=== PATIENT | female | born 1945 | race Caucasian/White ===

== ENCOUNTER → 2017-04-28 | Outpatient (CLI) | payer MEDICARE, BC ==
--- NOTE | 2017-04-28 16:10 | ST Modified Barium Swallow ---
Recommendation - Recommendations Recommendations: Recommend majority of nutrition/hydration be provided via PEG. May have pleasure feeds of nectar liquids and mechanical soft ground diet. Would benefit from dietary consult to ensure nutritional needs are met. Patient is also a candidate for Free Water Protocol. Medical Diagnoses - Medical Diagnoses Medical Diagnosis Description & ICD-10 Code(s): dysphagia following unspecified CVA I69.991, dysphagia R13.10 Other Medical Diagnoses/Co-Morbidities: hx of CVA 2008, prior aspiration pneumonia 2011 Modified Barium Swallow - General Date: 04/28/17 Referring Physician: Dr. Clarke Risks/Precautions: Aspiration Reason for Referral: "choking with food and liquid" - History History obtained from: Family - daughter present -: Medical - Daughter reports that the patient had a CVA on September 18, 2008. Was made NPO immediately after CVA, but able to regain PO diet. The patient is currently on night feeds with PEG tube and eats by mouth during the day. - Functional Status Prior Functional Status: INDEPENDENT: feeding - impaired Current Functional Limitations: feeding - impaired - Subjective Patient/caregiver goal(s): r/o aspiration - establish safest diet Cognitive-Linguistic Function: Other - difficulty communicating Speech Intelligibility: Severely dysarthric Current Nutritional Means: PO Current PO diet: Regular - specific foods Current symptoms: Coughing, Hx of asp. pneumonia Pain: Patient reports, 0/5 - Objective Assessment: Upright, Left Lateral - Food Trials Used Food trials used: Thin liquids, Hermosa thick liquids, Pureed, Regular The patient: fed by - Oral-Motor Skills Dentition: Partial Laryngeal Function: Weak Cough - Assessment Oral prep: Mildly Impaired Labial closure: Reduce closure Leakage: Anterior - with liquids Mastication: Lengthy Lingual Movement: Weak Oral stage: Moderately Impaired Oral Stage: Oral residue seen after swallow, required multiple swallows or liquid wash to clear. - Pharyngeal Stage Initiation of Pharyngeal Stage Reflex: Delayed Reflex Delay Time (Seconds): 3 Decreased laryngeal elevation: Yes Reduced Velopharyngeal Closure: no Reduced pressure generation: Yes reduced tongue-based retraction: No Pre-swallow pooling in valleculae: Mild Pre-Swallow pooling in pyriforms: Mild Reduced Thyro-Hyoid approximation: Yes Reduced epiglottic excursion: No Post-swallow residulas vallecular: Mild Post-Swallow residuals in pyriforms: Moderate Pharyngeal Stage Comments: Delayed swallow reflex seen, as well as residue throughout pharynx. Able to clear with liquid wash or multiple swallows. - Fall Risk Assessment Medications/Conditions that increase fall risks include: Antidepressants, sedatives, anti-arrhythmic, diuretic, benzodiazipenes, neuroleptics. BP regulation problems, cardiac problems, balance or gait deficits, neurological problems. Fall Risk Actions Taken: No action needed - Behavioral Observations During evaluation process patient: was cooperative - Treatment / Educational Needs: Treatment/Education Needs: Treatment consisted of patient education on the role of the Speech Pathologist. Patient's plan of care and golas were communicated as well as scheduling and attendance policies. Recommendations for initial home program were shared. Patient demonstrated understanding and verbalized agreement. Initial home program recommendations: Pleasure feeds of nectar liquids and mechanical soft foods. Majority of nutrition/hydration should be met via PEG. Patient is candidate for Free Water Protocol. Information given to patient's daughter regarding diet recommendations, and recommendation for candy cooker helper/ bobbin disker consult to ensure nutrition needs are being met. - Impression/Summary Laryngeal Penetration: Yes, Silent, during swallow Consistency: Thin, Hermosa Tracheal Aspiration: yes - with thin liquid only, deep, silent, during swallow, after swallow Productive cough: No Effective Clearing: no Patient presents with: Oral-Pharyngeal dysph., Severe Risk of Aspiration: Moderate Risk of nutritional compromise: WNL Evaluation and Findings: Patient presents with moderate to severe oral and pharyngeal phase dysphagia. This is characterized by reduced oral clearing, trace aspiration of thin liquids, and pharyngeal residue of solids. Recommend pleasure feeds of nectar liquids, mechanical soft solids, with primary nutrition hydration needs being met via tube feeds. Patient is also a candidate for a Free Water Protocol, which was discussed with caregiver. - Recommendations NPO: therapeutic trials - pleasure feeds Solid diet recommendations: Mechanical Soft - for pleasure feeds Liquid Diet Modification: Hermosa-Thick - for pleasure feeds Strict aspiration precautions: Yes Pt/Family education and followup with MD: Yes Reflux Precautions: Taught to Family Recommended techniques: Fully Upright During Meal, Small Bites and Sips, Alternate Bites/Sips Supervision: requires assistance Information, Precautions and Recommendations: Patient (Written), Patient (Verbal ), Family Member (Written) - patient's daughter given diet recommendations and information on thickened liquids., Family Member (Verbal) - Time Total Time: 20 - Plan of Care Strategies to optimize patient understanding include:: ongoing assessment of educational needs, implementation of educational strategies, and re-education. - - -: Thank you for the opportunity to work with this patient and his/her family. Should you have any questions about this patient's plan or progress, I can be reached at [phone]. Charge G Code? - - -: Yes [facility] Impairment Category - Rationale Based On Rationale Based On: Func. Asses. Tool Results - Swallowing Current G8996: CM 80-99% Impaired Goal G8997: CM 80-99% Impaired Discharge G8998: CM 80-99% Impaired
== END ==
LOC: RAD 08:19
PROVIDERS: ATTEND Family Medicine
DX: I69.991 Dysphagia following unspecified cerebrovascular disease (principal); R13.10 Dysphagia, unspecified
CPT/HCPCS: 74230; 92611; G8996; G8997; G8998

== ENCOUNTER → 2017-06-10 | Outpatient (CLI) | payer MEDICARE, BC ==
--- NOTE | 2017-06-10 15:26 | WOMENS IMAGING REPORT ---
EXAM DESCRIPTION: BILAT SCREENING MAMMO W/CAD COMPLETED DATE/TIME: 06/10/2017 2:48 pm REASON FOR STUDY: SCREENING MAMMO Z12.31 ENCNTR SCREEN MAMMOGRAM FOR MALIGNANT NEOPLASM OF ABBY COMPARISON: February 2015 TECHNIQUE: Standard craniocaudal and mediolateral oblique views of each breast recorded using [employer] acquisition. LIMITATIONS: None. FINDINGS: RIGHT BREAST MASSES: No suspicious masses. CALCIFICATIONS: No new or suspicious calcifications. ARCHITECTURAL DISTORTION: None. DEVELOPING DENSITY: There is a developing density in the subareolar portion of the right breast which may in part be related to nipple inversion. ASYMMETRY: None noted. OTHER: No other significant findings. LEFT BREAST MASSES: No suspicious masses. CALCIFICATIONS: No new or suspicious calcifications. ARCHITECTURAL DISTORTION: None. DEVELOPING DENSITY: None. ASYMMETRY: None noted. OTHER: No other significant findings. Read with the assistance of CAD. [facility] - R2 Cenova Version 1.3 .[facility] - R2 Cenova Version 1.3 .[facility] - R2 Cenova Version 2.4 .[facility] - R2 Cenova Version 2.4 .[facility] - R2 [employer] Version 9.2 IMPRESSION: Developing density in the subareolar portion of the right breast. BREAST DENSITY: b. There are scattered areas of fibroglandular density. BIRAD: 0 Incomplete: Needs Additional Imaging Evaluation and/or prior Mammograms for Comparison. RECOMMENDATION: RECOMMENDED FOLLOW-UP: Recommend correlation with clinical findings and if clinicall y warranted ultrasound may be of value for further evaluation. The patient will be contacted for additional imaging. COMMENT: The patient has been notified of the results by letter per [place] requirements. Additional no tification policies are in place for contacting patient with suspicious or incomplete findings. Quality ID #[id number]: The [employer] recommends an annual screening mammogram for women aged 40 years or over. This facility utilizes a reminder system to ensure that all patients receive reminder letters, and/or direct phone calls for appointments. This includes reminders for routine scr eening mammograms, diagnostic mammograms, or other Breast Imaging Interventions when appropriate. Th is patient will be placed in the appropriate reminder system. The [employer] (ACR) has developed recommendations for screening MRI of the breast s in certain patient populations, to be used in conjunction with mammography. Breast MRI surveillanc e may be appropriate for women with more than 20% lifetime risk of developing breast cancer as deter mined by genetic testing, significant family history of the disease, or history of mantle radiation f or Hodgkins Disease. ACR Practice Guidelines 2008. TECHNICAL DOCUMENTATION: FINDING NUMBER: (1) ASSESSMENT: (1) JOB ID: [id number] [employer]- All Rights Reserved Reading location - IP/workstation name: [email or web address]
== END ==
LOC: WI 14:07
PROVIDERS: ATTEND Physician Assistant Medical
DX: Z12.31 Encounter for screening mammogram for malignant neoplasm of breast (principal); R92.2 Inconclusive mammogram
CPT/HCPCS: 77067

== ENCOUNTER 2017-07-05 12:07 | Inpatient (IN) | payer MEDICARE, BC ==
[2017-07-05] MEDS ORDERED: IPRATROPIUM/ALBUTEROL 0.5-2.5 MG/3 ML AMPUL NEB ONE (12:23)
--- NOTE | 2017-07-05 12:25 | ER Document Report ---
ED Medical Screen (RME) - General Chief Complaint: Shortness Of Breath Stated Complaint: SHORTNESS OF BREATH, WEAKNESS Time Seen by Provider: 07/05/17 12:22 Notes: Patient is a 71-year-old female, past medical history prior CVA, former smoker, presents with 2 weeks of increasing shortness of breath and dry cough. Patient has never been formally diagnosed with COPD and is found to be 91%. According to daughter, the patient is also had increased weakness over the past 2 weeks too. PE: Mild tachypnea, coarse breath sounds, tachycardia I have greeted and performed a rapid initial assessment of this patient. A comprehensive ED assessment and evaluation of the patient, analysis of test results and completion of the medical decision making process will be conducted by additional ED providers. TRAVEL OUTSIDE OF THE [place] IN LAST 30 DAYS: No - Related Data Allergies/Adverse Reactions: codeine [Codeine] Allergy (Verified 07/05/17 12:07) Past Medical History - Past Medical History Cardiac Medical History: Reports: Hx Hypercholesterolemia, Hx Hypertension Denies: Hx Coronary Artery Disease, Hx Heart Attack Pulmonary Medical History: Reports: Hx Pneumonia - aspiration Denies: Hx Asthma, Hx Bronchitis, Hx COPD Neurological Medical History: Reports: Hx Cerebrovascular Accident - RIGHT SIDE WEAKER. Denies: Hx Seizures GI Medical History: Reports: Hx Gastroesophageal Reflux Disease Musculoskeltal Medical History: Reports Hx Arthritis Psychiatric Medical History: Reports: Hx Depression Past Surgical History: Reports: Hx Orthopedic Surgery - back and neck surgery. Denies: Hx Hysterectomy, Hx Pacemaker - Immunizations Immunizations up to date: No - OFFER FLU AND PNEUMONIA VACCINE Hx Diphtheria, Pertussis, Tetanus Vaccination: Yes Physical Exam - Vital signs Vitals: Temp Pulse Resp BP Pulse Ox 98.4 F 117 H 20 132/58 H 91 L 07/05/17 12:13 07/05/17 12:13 07/05/17 12:13 07/05/17 12:13 07/05/17 12:13 Course - Vital Signs Vital signs: Temp Pulse Resp BP Pulse Ox 98.4 F 117 H 20 132/58 H 91 L 07/05/17 12:13 07/05/17 12:13 07/05/17 12:13 07/05/17 12:13 07/05/17 12:13
[2017-07-05] MEDS ORDERED: NORMAL SALINE 1000 ML 1,000 ML IV ONE (13:08)
[2017-07-05] MEDS ORDERED: METHYLPREDNISOLONE INJ 125 MG/2 ML SDV IV ONE (13:09)
[2017-07-05] MEDS ORDERED: CEFTRIAXONE INJ 1000 MG VIAL IV ONE (13:12)
--- NOTE | 2017-07-05 13:12 | ER Document Report ---
ED Respiratory Problem - General Chief Complaint: Shortness Of Breath Stated Complaint: SHORTNESS OF BREATH, WEAKNESS Time Seen by Provider: 07/05/17 12:22 Notes: 71-year-old female, past medical history prior CVA, former smoker, presents with 2 weeks of increasing shortness of breath and dry cough. Patient has questionable history of COPD and is found to be saturating 91%. The patient denies any fever or chills. States she has been considerably weak. And feeling poorly. Patient claims of a dry mouth and feeling thirsty she is a history of prior stroke with left-sided weakness. Denies chest pain. Had some mild tightness. Denies extremity swelling denies calf pain. Denies hematuria or dysuria denies diarrhea or constipation. TRAVEL OUTSIDE OF THE [place] IN LAST 30 DAYS: No - Related Data Allergies/Adverse Reactions: codeine [Codeine] Allergy (Verified 07/05/17 12:07) Past Medical History - Social History Smoking Status: Former Smoker Chew tobacco use (# tins/day): No Frequency of alcohol use: None Drug Abuse: None Family History: None Patient has suicidal ideation: No Patient has homicidal ideation: No - Past Medical History Cardiac Medical History: Reports: Hx Hypercholesterolemia, Hx Hypertension Denies: Hx Coronary Artery Disease, Hx Heart Attack Pulmonary Medical History: Reports: Hx Pneumonia - aspiration Denies: Hx Asthma, Hx Bronchitis, Hx COPD Neurological Medical History: Reports: Hx Cerebrovascular Accident - RIGHT SIDE WEAKER. Denies: Hx Seizures Renal/ Medical History: Denies: Hx Peritoneal Dialysis GI Medical History: Reports: Hx Gastroesophageal Reflux Disease Musculoskeltal Medical History: Reports Hx Arthritis Psychiatric Medical History: Reports: Hx Depression Past Surgical History: Reports: Hx Orthopedic Surgery - back and neck surgery. Denies: Hx Hysterectomy, Hx Pacemaker - Immunizations Immunizations up to date: No - OFFER FLU AND PNEUMONIA VACCINE Hx Diphtheria, Pertussis, Tetanus Vaccination: Yes Hx Pneumococcal Vaccination: 06/27/09 Review of Systems - Review of Systems Constitutional: denies: Chills, Fever EENT: denies: Throat pain, Dental problem Cardiovascular: Dyspnea. denies: Chest pain Respiratory: Cough, Short of breath, Wheezing. denies: Hurts to breathe, Hemoptysis Gastrointestinal: denies: Abdominal pain, Nausea, Vomiting, Black stools, Rectal bleeding Genitourinary: denies: Dysuria, Hematuria Musculoskeletal: denies: Leg swelling Neurological/Psychological: denies: Headaches -: Yes All other systems reviewed and negative Physical Exam - Vital signs Vitals: Temp Pulse Resp BP Pulse Ox 98.4 F 117 H 20 132/58 H 91 L 07/05/17 12:13 07/05/17 12:13 07/05/17 12:13 07/05/17 12:13 07/05/17 12:13 - Notes Notes: GENERAL_APPEARANCE: well_nourished, alert, cooperative, respiratory distress VITALS: reviewed, see vital signs table. HEAD: no_swelling\tenderness on the head. EYES: PERRL, EOMI, conjunctiva_clear. NOSE: no_nasal_discharge. MOUTH: Dry mucous membranes THROAT: no_airway_obstruction. no_lymphadenopathy NECK: supple, no_neck_tenderness, (-)thyromegaly. BACK: no_back_tenderness. CHEST_WALL: no_chest_tenderness. LUNGS: Scattered_wheezing, crackles left base no_rhonchi, positive accessory muscle use, fair air exchange bilateral. HEART: normal_rate, normal_rhythm, normal_S1, normal_S2, (-)S3, (-)S4, no_ murmur, no_rub. ABDOMEN: normal_BS, soft, no_abd_tenderness, (-)guarding, (-)rebound, no_ organomegaly, no_abd_masses. EXTREMITIES: good pulses in all_extremities, no_swelling\tenderness in the extremities, no_edema. SKIN: warm, dry, good_color, no_rash. MENTAL_STATUS: speech_clear, oriented_X_3, normal_affect, responds_ appropriately to questions. NEURO: Left facial droop and left-sided weakness from prior stroke Course - Re-evaluation Re-evalutation: 07/05/17 13:11 Triage is placed orders. She will be given aerosol treatment steroids and a dose of antibiotics. Patient 's been having increasing cough and shortness of breath she clinically looks dehydrated will receive a liter of IV fluids. Aerosol treatment steroids. Will begin working the patient up. 07/05/17 13:12 The patient does have a history of aspiration pneumonia. This is the daughter' s primary concern. 07/05/17 14:31 Patient has a left lower lobe pneumonia leukocytosis. She had accessory muscle use upon presentation this is an significantly with aerosol treatment steroids and antibiotics. She has not been around a healthcare facility so I treated her for community-acquired pneumonia with Rocephin and Zithromax. With the patient's stroke and questionable aspiration I do not think she will do well at home. Patient will be admitted to the hospital. I suspect that she may have rebound bronchospasm therefore persistent pulmonary toilet may be needed. - Vital Signs Vital signs: Temp Pulse Resp BP Pulse Ox 98.4 F 117 H 20 132/58 H 91 L 07/05/17 12:13 07/05/17 12:13 07/05/17 12:13 07/05/17 12:13 07/05/17 12:13 - Laboratory Result Diagrams: 07/05/17 13:00 07/05/17 13:00 Laboratory results interpreted by me: 07/05/17 07/05/17 07/05/17 13:00 13:00 13:00 WBC 14.0 H Hgb 11.8 L RDW 15.0 H Seg Neutrophils % 81.1 H Lymphocytes % 10.9 L Absolute Neutrophils 11.3 H BUN 25 H Glucose 140 H Direct Bilirubin 0.6 H AST 48 H NT-Pro-B Natriuret Pep 1170 H Total Protein 8.3 H - Diagnostic Test Radiology reviewed: Image reviewed Radiology results interpreted by me: 07/05/17 14:31 Chest X-Ray 07/05/17 12:23 IMPRESSION: Left basilar density is noted above. Discharge - Discharge Clinical Impression: Pneumonia Qualifiers: Pneumonia type: due to unspecified organism Laterality: left Lung location: lower lobe of lung Qualified Code(s): J18.1 - Lobar pneumonia, unspecified organism Condition: Fair Disposition: ADMITTED INPATIENT Admitting Provider: Hospitalist
[2017-07-05 13:21] LABS: ABSOLUTE LYMPHOCYTES (AUTO) 1.5 10^3/uL (0.5-4.7); ABSOLUTE MONOCYTES (AUTO) 1.1 10^3/uL (0.1-1.4); ABSOLUTE NEUT (AUTO) 11.3 10^3/uL (1.7-8.2); BASOPHILS % (AUTO) 0.1 % (0-2); HEMOGLOBIN 11.8 g/dL (12.0-15.5); LYMPHOCYTES % (AUTO) 10.9 % (13-45); MEAN CORPUSCULAR HEMOGLOBIN 27.8 pg (27.0-33.4); MEAN CORPUSCULAR HGB CONC 32.9 g/dL (32.0-36.0); MEAN CORPUSCULAR VOLUME 85 fl (80-97); MONOCYTES % (AUTO) 7.9 % (3-13); PLATELET COUNT 228 10^3/uL (150-450); RED BLOOD COUNT 4.26 10^6/uL (3.72-5.28); SEGMENTED NEUTROPHILS % (AUTO) 81.1 % (42-78); TOTAL CELLS COUNTED % (AUTO) 100 %
[2017-07-05 13:31] LABS: ALANINE AMINOTRANSFERASE 47 U/L (9-52); ALKALINE PHOSPHATASE 124 U/L (38-126); ANION GAP 12 (5-19); ASPARTATE AMINO TRANSFERASE 48 U/L (14-36); BILIRUBIN,DIRECT 0.6 mg/dL (0.0-0.4); BILIRUBIN,TOTAL 1.1 mg/dL (0.2-1.3); BLOOD UREA NITROGEN 25 mg/dL (7-20); CALCIUM 9.9 mg/dL (8.4-10.2); CARBON DIOXIDE 30 mmol/L (22-30); CHLORIDE 102 mmol/L (98-107); GLUCOSE 140 mg/dL (75-110); POTASSIUM 4.1 mmol/L (3.6-5.0); SODIUM 143.5 mmol/L (137-145); TOTAL PROTEIN 8.3 g/dL (6.3-8.2)
[2017-07-05 13:47] LABS: TROPONIN I 0.053 ng/mL
[2017-07-05 13:54] LABS: VENOUS BLOOD BASE EXCESS 3.7 mmol/L; VENOUS BLOOD HCO3 29.5 mmol/L (20-32); VENOUS BLOOD PCO2 49.7 mmHg (35-63); VENOUS BLOOD PH 7.39 (7.30-7.42)
--- NOTE | 2017-07-05 14:00 | RADIOLOGY REPORT (SQ) ---
EXAM DESCRIPTION: CHEST SINGLE VIEW COMPLETED DATE/TIME: 07/05/2017 1:39 pm REASON FOR STUDY: SOB COMPARISON: November 2012 EXAM PARAMETERS: NUMBER OF VIEWS: One view. TECHNIQUE: Single frontal radiographic view of the chest acquired. RADIATION DOSE: NA LIMITATIONS: None. FINDINGS: LUNGS AND PLEURA: There is increased density in the left lung base consistent with pneumon ic consolidation. I cannot exclude a small associated left pleural effusion. Remaining lung scott are clear. MEDIASTINUM AND HILAR STRUCTURES: No masses. Contour normal. HEART AND VASCULAR STRUCTURES: Heart normal in size. Normal vasculature. BONES: No acute findings. HARDWARE: None in the chest. OTHER: No other significant finding. IMPRESSION: Left basilar density is noted above. TECHNICAL DOCUMENTATION: JOB ID: [id number] [employer]- All Rights Reserved Reading location - IP/workstation name: [email or web address]
[2017-07-05] MEDS ORDERED: AZITHROMYCIN INJ 500 MG VIAL IV ONE (14:19)
--- NOTE | 2017-07-05 14:25 | EKG REPORT ---
SEVERITY:- ABNORMAL ECG - SINUS TACHYCARDIA LEFT ATRIAL ABNORMALITY CONSIDER ANTERIOR INFARCT : Confirmed by: Humberto Luu 05-Jul-2017 14:25:15
[2017-07-05] MEDS ORDERED: ALBUTEROL SULFATE 0.083% NEB 2.5 MG/3 ML AMPUL NEB PRN (14:34)
[2017-07-05] MEDS ORDERED: BENZONATATE 100 MG CAPSULE PO PRN (15:22)
--- NOTE | 2017-07-05 15:46 | PDOC H&P ---
History of Present Illness Admission Date/PCP: 07/05/17 15:17 SHARI BENSON MD Patient complains of: Unable to obtain due to aphasia. Daughter is the source of information History of Present Illness: ARIANA MCCARTHY is a 71 year old female was brought in by her daughter since she was concerned about patient having difficulty breathing since yesterday. Patient had an abnormal mammogram and had a sonogram scheduled today. While getting the sonogram daughter noted the persistent difficulty breathing. She helps out her mother on a daily basis. Yesterday her mother was complaining of having a funny feeling in her chest. Also patient was sounding congested. Patient had a stroke around 10 years ago and since then she had been having problems communicating and also continues having mostly right-sided weakness. Daughter also is concerned because patient had lost about 5-6 pounds in a month time. Patient does have a G-tube however is allowed to have pureed. She had swallowing evaluation recently and was ordered by her PCP, Dr Benson. Patient' s daughter also states that she is always on her stepfather's case to keep mother in an upright position in order to avoid aspiration. When patient arrived to emergency room pulse ox was 91% at room air. She was placed on 2 L by nasal cannula with improvement to 96-98%. Patient does have a history of smoking however she quit around 10 years ago. Further workup in emergency room showed a left lower lobe pneumonia and was started on Rocephin and Zithromax IV. In addition patient was started on Solu-Medrol 125 mg IV. The hospitalist service was consulted and prompted to admit for management. Past Medical History Cardiac Medical History: Reports: Hyperlipidema, Hypertension Denies: Coronary Artery Disease, Myocardial Infarction Pulmonary Medical History: Reports: Pneumonia - aspiration Denies: Asthma, Bronchitis, Chronic Obstructive Pulmonary Disease (COPD) EENT Medical History: Reports: None Neurological Medical History: Reports: None Denies: Seizures Endocrine Medical History: Reports: None Renal/ Medical History: Reports: None Malignancy Medical History: Reports: None GI Medical History: Reports: Gastroesophageal Reflux Disease Musculoskeltal Medical History: Reports: Arthritis Skin Medical History: Reports: None Psychiatric Medical History: Reports: Depression Traumatic Medical History: Reports: None Hematology: Denies: Anemia Past Surgical History Past Surgical History: Reports: Orthopedic Surgery - back and neck surgery Denies: Hysterectomy, Pacemaker Social History Information Source: Relative Lives with: Spouse/Significant other Smoking Status: Former Smoker Frequency of Alcohol Use: None Hx Recreational Drug Use: No Hx Prescription Drug Abuse: No - Advance Directive Resuscitation Status: Full Code Family History Family History: None, COPD, CVA, DM, Hypertension, Malignancy Parental Family History Reviewed: Yes Children Family History Reviewed: Yes Sibling(s) Family History Reviewed.: Yes Medication/Allergy Home Medications: Aspirin [Aspirin 81 mg Chewable Tablet] 81 mg PO DAILY 09/23/11 Lisinopril [Prinivil 20 mg Tablet] 20 mg PO DAILY 09/23/11 Metoprolol Succinate [Toprol Xl 25 mg Tab.sr] 50 mg PO Q12H 09/23/11 Sertraline HCl [Zoloft 50 mg Tablet] 50 mg PO DAILY 09/23/11 Lovastatin [Altoprev] 40 mg PO QHS 01/03/12 Amlodipine Besylate [Norvasc 10 mg Tablet] 10 mg PO DAILY 05/03/12 Scopolamine Hydrobromide [Transderm-Scop 1.5 Mg Patch] 1 each TD Q72H PRN Allergies/Adverse Reactions: codeine [Codeine] Allergy (Verified 07/05/17 12:07) Review of Systems ROS unobtainable: Other - aphasia Physical Exam Vital Signs: Temp Pulse Resp BP Pulse Ox 98.4 F 117 H 24 H 138/68 H 99 07/05/17 12:13 07/05/17 12:13 07/05/17 15:01 07/05/17 14:39 07/05/17 15:01 General appearance: PRESENT: cooperative, thin Head exam: PRESENT: atraumatic, normocephalic Eye exam: PRESENT: conjunctiva pink, EOMI, PERRLA Ear exam: PRESENT: normal external ear exam Mouth exam: PRESENT: moist Neck exam: PRESENT: full ROM. ABSENT: JVD, lymphadenopathy, tenderness, thyromegaly Respiratory exam: PRESENT: decreased breath sounds, rhonchi Cardiovascular exam: PRESENT: RRR. ABSENT: diastolic murmur, systolic murmur Vascular exam: PRESENT: normal capillary refill GI/Abdominal exam: PRESENT: normal bowel sounds, soft. ABSENT: tenderness Extremities exam: PRESENT: full ROM. ABSENT: pedal edema Musculoskeletal exam: ABSENT: ambulatory Neurological exam: PRESENT: alert, awake, oriented to person, oriented to place , oriented to time, aphasic Psychiatric exam: PRESENT: appropriate affect, normal mood Skin exam: PRESENT: intact, normal color Results Impressions: Chest X-Ray 07/05/17 12:23 IMPRESSION: Left basilar density is noted above. Assessment & Plan - Diagnosis (1) Pneumonia Qualifiers: Pneumonia type: due to unspecified organism Laterality: left Lung location: lower lobe of lung Qualified Code(s): J18.1 - Lobar pneumonia, unspecified organism Is this a current diagnosis for this admission?: Yes Plan: Order zosyn since likely due to aspiration. (2) Elevated brain natriuretic peptide (BNP) level Is this a current diagnosis for this admission?: Yes Plan: May relate to pneumonic process. To order one time dose of Lasix IV. Order echocardiogram (3) Anemia Qualifiers: Anemia type: unspecified type Qualified Code(s): D64.9 - Anemia, unspecified Is this a current diagnosis for this admission?: Yes Plan: Likely due to chronic disease. Order anemia panel (4) History of stroke Is this a current diagnosis for this admission?: Yes Plan: Supportive. Consult dietitian since patient has lost 5-6 pounds recently. Consult case management, OT and PT for the purpose of rehab. (5) HTN (hypertension) Qualifiers: Hypertension type: essential hypertension Qualified Code(s): I10 - Essential (primary) hypertension Is this a current diagnosis for this admission?: Yes Plan: Will conitnue with outpatient regimen once available to reconcile - Time Time Spent: 30 to 50 Minutes Medications reviewed and adjusted accordingly: Yes Anticipated discharge: Acute Rehab Within: within 72 hours - Inpatient Certification Based on my medical assessment, after consideration of the patient's comorbidities, presenting symptoms, or acuity I expect that the services needed warrant INPATIENT care.: Yes I certify that my determination is in accordance with my understanding of Medicare's requirements for reasonable and necessary INPATIENT services [42 CFR 412.3e].: Yes Medical Necessity: Need Close Monitoring Due to Risk of Patient Decompensation, Need for Nebulizer Therapy and Monitoring of Response, Need for IV Antibiotics
[2017-07-05] MEDS ORDERED: SCOPOLAMINE HYDROBROMIDE 1.5 MG PATCH.TD72 TD ONE (16:30)
[2017-07-05] MEDS ORDERED: FUROSEMIDE INJ/PF 20 MG/2 ML SDV IV ONE (16:30)
[2017-07-05] MEDS: PIPERACILLIN SODIUM/TAZOBACTAM 3.375 GM in NORMAL SALINE 100 ML IV SCH (18:39)
[2017-07-05] MEDS ORDERED: METOPROLOL SUCCINATE 25 MG TAB.SR.24H PO SCH (19:00)
[2017-07-05] MEDS: IPRATROPIUM/ALBUTEROL 0.5-2.5 MG/3 ML AMPUL NEB SCH (19:46)
[2017-07-05] MEDS: HEPARIN SOD (PORCINE) 5,000 UNIT/ML 1 ML SYRINGE SUBCUT SCH (21:56)
[2017-07-05] MEDS: METHYLPREDNISOLONE INJ 40 MG/1 ML SDV IV SCH (21:56)
[2017-07-05] MEDS: METOPROLOL SUCCINATE 50 MG TAB.SR.24H PO SCH (21:57)
[2017-07-05] MEDS: GUAIFENESIN 600 MG TABLET.SA PO SCH (21:57)
[2017-07-06] MEDS: PIPERACILLIN SODIUM/TAZOBACTAM 3.375 GM in NORMAL SALINE 100 ML IV SCH ×5 (00:21→23:12)
[2017-07-06] MEDS ORDERED: NORMAL SALINE 1000 ML 1,000 ML IV PRN (05:00)
[2017-07-06] MEDS: METHYLPREDNISOLONE INJ 40 MG/1 ML SDV IV SCH ×3 (05:19→23:12)
[2017-07-06] MEDS: HEPARIN SOD (PORCINE) 5,000 UNIT/ML 1 ML SYRINGE SUBCUT SCH ×3 (05:19→23:12)
[2017-07-06 06:48] LABS: ABSOLUTE LYMPHOCYTES (AUTO) 0.4 10^3/uL (0.5-4.7); ABSOLUTE MONOCYTES (AUTO) 0.1 10^3/uL (0.1-1.4); ABSOLUTE NEUT (AUTO) 7.4 10^3/uL (1.7-8.2); ABSOLUTE RETICS # 0.039 10^6/uL (0.028-0.122); BASOPHILS % (AUTO) 0.2 % (0-2); HEMATOCRIT 32.4 % (36.0-47.0); HEMOGLOBIN 10.8 g/dL (12.0-15.5); LYMPHOCYTES % (AUTO) 5.5 % (13-45); MEAN CORPUSCULAR HGB CONC 33.3 g/dL (32.0-36.0); MEAN CORPUSCULAR VOLUME 84 fl (80-97); MONOCYTES % (AUTO) 1.6 % (3-13); PLATELET COUNT 183 10^3/uL (150-450); RED BLOOD COUNT 3.85 10^6/uL (3.72-5.28); RED CELL DISTRIBUTION WIDTH 14.8 % (11.5-14.0); RETICULOCYTE COUNT (AUTO) 1.02 % (0.66-2.85); SEGMENTED NEUTROPHILS % (AUTO) 92.7 % (42-78); TOTAL CELLS COUNTED % (AUTO) 100 %
[2017-07-06 07:02] LABS: ANION GAP 12 (5-19); BLOOD UREA NITROGEN 25 mg/dL (7-20); CALCIUM 9.2 mg/dL (8.4-10.2); CARBON DIOXIDE 26 mmol/L (22-30); CHLORIDE 106 mmol/L (98-107); GLUCOSE 143 mg/dL (75-110); IRON(TIBC) 26.4 ug/dL (37-170); POTASSIUM 3.8 mmol/L (3.6-5.0); SODIUM 143.9 mmol/L (137-145)
[2017-07-06 08:12] LABS: FOLATE > 20.00 ng/mL (>2.76)
[2017-07-06] MEDS: IPRATROPIUM/ALBUTEROL 0.5-2.5 MG/3 ML AMPUL NEB SCH ×3 (08:32→20:03)
[2017-07-06] MEDS ORDERED: (PENDING PHARMACY ID) (Lisinopril [Prinivil 20 Mg Tablet] 20 MG) PO SCH (10:00)
[2017-07-06] MEDS ORDERED: CEFTRIAXONE SODIUM 1,500 MG in DEXTROSE 5%-WATER 100 ML IV SCH (10:00)
[2017-07-06] MEDS ORDERED: AMLODIPINE BESYLATE 10 MG TABLET PO SCH (10:00)
[2017-07-06] MEDS: METOPROLOL SUCCINATE 50 MG TAB.SR.24H PO SCH ×2 (11:49→23:05)
[2017-07-06] MEDS: SERTRALINE HCL 50 MG TABLET PO SCH (11:49)
[2017-07-06] MEDS: ASPIRIN 81 MG TABLET, CHEWABLE PO SCH (11:49)
[2017-07-06] MEDS: LISINOPRIL 10 MG TABLET PO SCH (11:50)
[2017-07-06] MEDS: GUAIFENESIN 600 MG TABLET.SA PO SCH ×2 (11:50→23:05)
--- NOTE | 2017-07-06 15:43 | PDOC PROGRESS REPORT ---
Subjective Progress Note for:: 07/06/17 Subjective:: Patient states that feels better then yesterday. Communication is difficult due to aphasia and daughter was not at bedside Review of system All organ systems evaluated and negative except as in subjective All significant diagnostics and laboratories have been reviewed Reason For Visit: PNEUMONIA Physical Exam Vital Signs: Temp Pulse Resp BP Pulse Ox 97.9 F 69 16 106/50 L 100 07/06/17 06:00 07/06/17 04:07 07/06/17 04:07 07/06/17 04:07 07/06/17 04:07 Intake & Output 07/05/17 07/06/17 07/07/17 06:59 06:59 06:59 Intake Total 0 Balance 0 Weight 49.5 kg General appearance: PRESENT: no acute distress, cooperative, thin Head exam: PRESENT: atraumatic, normocephalic Eye exam: PRESENT: conjunctiva pink, EOMI, PERRLA Ear exam: PRESENT: normal external ear exam Mouth exam: PRESENT: moist Neck exam: PRESENT: full ROM. ABSENT: JVD, lymphadenopathy, tenderness Respiratory exam: PRESENT: rhonchi, other - Improvement of movement of air bilaterally Cardiovascular exam: PRESENT: RRR. ABSENT: diastolic murmur, systolic murmur Vascular exam: PRESENT: normal capillary refill GI/Abdominal exam: PRESENT: normal bowel sounds, soft. ABSENT: tenderness Extremities exam: PRESENT: full ROM. ABSENT: pedal edema Musculoskeletal exam: PRESENT: ambulatory Neurological exam: PRESENT: alert, awake, oriented to person, oriented to place , aphasic Psychiatric exam: PRESENT: appropriate affect, normal mood Skin exam: PRESENT: intact, normal color Results Laboratory Results: 07/06/17 06:24 07/06/17 06:24 07/06/17 07/06/17 06:24 06:24 WBC 8.0 RBC 3.85 Hgb 10.8 L Hct 32.4 L MCV 84 MCH 28.0 MCHC 33.3 RDW 14.8 H Plt Count 183 Seg Neutrophils % 92.7 H Lymphocytes % 5.5 L Monocytes % 1.6 L Eosinophils % 0.0 Basophils % 0.2 Absolute Neutrophils 7.4 Absolute Lymphocytes 0.4 L Absolute Monocytes 0.1 Absolute Eosinophils 0.0 Absolute Basophils 0.0 Retic Count (auto) 1.02 Absolute Retic 0.039 Sodium 143.9 Potassium 3.8 Chloride 106 Carbon Dioxide 26 Anion Gap 12 BUN 25 H Creatinine 0.59 Est GFR ( Amer) > 60 Est GFR (Non-Af Amer) > 60 Glucose 143 H Calcium 9.2 Magnesium 1.9 Iron 26.4 L TIBC 272 % Saturation 10 Ferritin 116.00 Vitamin B12 444.0 Folate > 20.00 07/05/17 07/06/17 18:55 01:01 Troponin I 0.042 0.016 Impressions: Chest X-Ray 07/05/17 12:23 IMPRESSION: Left basilar density is noted above. Assessment & Plan - Diagnosis (1) Pneumonia Qualifiers: Pneumonia type: aspiration pneumonia Laterality: left Lung location: lower lobe of lung Is this a current diagnosis for this admission?: Yes Plan: Continue zosyn since likely due to aspiration. (2) Elevated brain natriuretic peptide (BNP) level Is this a current diagnosis for this admission?: Yes Plan: May relate to pneumonic process. Echocardiogram ordered (3) Anemia Qualifiers: Anemia type: unspecified type Qualified Code(s): D64.9 - Anemia, unspecified Is this a current diagnosis for this admission?: Yes Plan: AROM mildly decreased as to start supplementation (4) History of stroke Is this a current diagnosis for this admission?: Yes Plan: Supportive. OT and PT consulted for the purpose of rehab. To start Jevity as per dietitian's recommendation (5) HTN (hypertension) Qualifiers: Hypertension type: essential hypertension Qualified Code(s): I10 - Essential (primary) hypertension Is this a current diagnosis for this admission?: Yes Plan: Decrease Norvasc dose and continue lisinopril and Toprol current dose - Time Time Spent with patient: 15-24 minutes Medications reviewed and adjusted accordingly: Yes Anticipated discharge: Acute Rehab Within: within 72 hours - Inpatient Certification Based on my medical assessment, after consideration of the patient's comorbidities, presenting symptoms, or acuity I expect that the services needed warrant INPATIENT care.: Yes I certify that my determination is in accordance with my understanding of Medicare's requirements for reasonable and necessary INPATIENT services [42 CFR 412.3e].: Yes Medical Necessity: Significant Comorbidiites Make Outpatient Treatment Too Risky , Need Close Monitoring Due to Risk of Patient Decompensation, Need for IV Antibiotics
[2017-07-06] MEDS: FERROUS SULFATE 325 MG TABLET PO SCH (18:32)
--- NOTE | 2017-07-06 22:48 | RADIOLOGY REPORT (SQ) ---
EXAM DESCRIPTION: CHEST SINGLE VIEW COMPLETED DATE/TIME: 07/06/2017 10:31 pm REASON FOR STUDY: aspiration COMPARISON: 07/05/2017 EXAM PARAMETERS: NUMBER OF VIEWS: One view. TECHNIQUE: Single frontal radiographic view of the chest acquired. RADIATION DOSE: NA LIMITATIONS: None. FINDINGS: LUNGS AND PLEURA: Similar small left basilar airspace opacities -effusion. Right lung sonam ears clear. MEDIASTINUM AND HILAR STRUCTURES: Stable. HEART AND VASCULAR STRUCTURES: Stable. BONES: No acute findings. HARDWARE: None in the chest. OTHER: No other significant finding. IMPRESSION: Similar small left basilar airspace opacities -effusion. TECHNICAL DOCUMENTATION: JOB ID: [id number] [place]-72 2010 [employer]- All Rights Reserved Reading location - IP/workstation name: [email or web address]
[2017-07-07] MEDS: METHYLPREDNISOLONE INJ 40 MG/1 ML SDV IV SCH ×2 (05:22→17:43)
[2017-07-07] MEDS: PIPERACILLIN SODIUM/TAZOBACTAM 3.375 GM in NORMAL SALINE 100 ML IV SCH ×4 (05:22→22:29)
[2017-07-07] MEDS: HEPARIN SOD (PORCINE) 5,000 UNIT/ML 1 ML SYRINGE SUBCUT SCH ×3 (05:22→22:29)
[2017-07-07 07:05] LABS: ABSOLUTE LYMPHOCYTES (AUTO) 0.6 10^3/uL (0.5-4.7); ABSOLUTE MONOCYTES (AUTO) 0.3 10^3/uL (0.1-1.4); ABSOLUTE NEUT (AUTO) 9.6 10^3/uL (1.7-8.2); LYMPHOCYTES % (AUTO) 5.7 % (13-45); MEAN CORPUSCULAR HEMOGLOBIN 28.1 pg (27.0-33.4); MEAN CORPUSCULAR HGB CONC 33.3 g/dL (32.0-36.0); MEAN CORPUSCULAR VOLUME 84 fl (80-97); PLATELET COUNT 222 10^3/uL (150-450); RED BLOOD COUNT 3.92 10^6/uL (3.72-5.28); RED CELL DISTRIBUTION WIDTH 14.7 % (11.5-14.0); SEGMENTED NEUTROPHILS % (AUTO) 91.3 % (42-78); TOTAL CELLS COUNTED % (AUTO) 100 %; WHITE BLOOD COUNT 10.5 10^3/uL (4.0-10.5)
[2017-07-07 07:34] LABS: ANION GAP 14 (5-19); BLOOD UREA NITROGEN 24 mg/dL (7-20); CALCIUM 9.3 mg/dL (8.4-10.2); CARBON DIOXIDE 26 mmol/L (22-30); CHLORIDE 109 mmol/L (98-107); GLUCOSE 127 mg/dL (75-110); POTASSIUM 3.4 mmol/L (3.6-5.0); SODIUM 148.7 mmol/L (137-145)
[2017-07-07] MEDS: IPRATROPIUM/ALBUTEROL 0.5-2.5 MG/3 ML AMPUL NEB SCH ×3 (08:24→20:43)
[2017-07-07] MEDS: METOPROLOL SUCCINATE 50 MG TAB.SR.24H PO SCH ×2 (09:07→22:29)
[2017-07-07] MEDS: SERTRALINE HCL 50 MG TABLET PO SCH (09:07)
[2017-07-07] MEDS: ASPIRIN 81 MG TABLET, CHEWABLE PO SCH (09:07)
[2017-07-07] MEDS: FERROUS SULFATE 325 MG TABLET PO SCH ×2 (09:07→17:43)
[2017-07-07] MEDS: GUAIFENESIN 600 MG TABLET.SA PO SCH ×2 (09:07→22:29)
[2017-07-07] MEDS: LISINOPRIL 10 MG TABLET PO SCH (09:07)
[2017-07-07] MEDS: AMLODIPINE BESYLATE 10 MG TABLET PO SCH (09:07)
[2017-07-07] MEDS ORDERED: POTASSIUM CHLORIDE 20 MEQ/15 ML UDCUP ONE (09:55)
[2017-07-07] MEDS ORDERED: POTASSIUM CHLORIDE 10 MEQ TABLET.SA PO ONE (10:00)
[2017-07-07] MEDS: POTASSI CL 40 MEQ/D5-1/2NS 1L 40 MEQ/1,000 ML RTUINJ IV PRN (10:27)
[2017-07-07] MEDS ORDERED: POTASSIUM CHLORIDE 20 MEQ/15 ML UDCUP GT ONE (11:00)
--- NOTE | 2017-07-07 11:21 | Physician Advisory Note ---
Physician Advisor ProgressNote .: Pursuant to the plan for Elham Kendrick, I have reviewed the medical record for this patient. Physician Advisor Statement: Please consider documenting, if you agree: 1. "Acute Hypoxemic Respiratory Failure, evidenced by " - Pt's sat down to 88% in ED, ED dr documented accessory muscle use & resp distress. 2. "COPD exacerbation, [new dx]" - or "Asthma exacerbation", or ... - (+) smoking hx, ED documented '?-able COPD'. Tx includes Solumedrol. 3. "Aspir PNA, evidenced by " [Just other s/s not in H&P, & all s/s in DCSummary.) - H&P states rhonchi, tachypnea, tachycardia, leukocytosis, difficulty breathing, infiltrate. - ED dr documented cough, SOB, weakness, wheezing, crackles, accessory muscle use. - Nursing has documented yellow-creamy sputum. 4. "Rt Hemiparesis" Thanks! CK
[2017-07-07] MEDS ORDERED: ACETAMINOPHEN 325 MG TABLET PO PRN (13:52)
[2017-07-07] MEDS ORDERED: OXYCODONE-ACETAMINOPHEN 5-325 MG TABLET PO PRN (13:52)
[2017-07-07] MEDS ORDERED: ACETAMINOPHEN 325 MG TABLET ONE (14:26)
--- NOTE | 2017-07-07 15:43 | PDOC PROGRESS REPORT ---
Subjective Progress Note for:: 07/07/17 Subjective:: No complaints. Communication is difficult due to severe aphasia Review of systems Difficult to obtain due to severe aphasia All significant diagnostics and laboratories have been reviewed Reason For Visit: PNEUMONIA Physical Exam Vital Signs: Temp Pulse Resp BP Pulse Ox 98.1 F 80 17 126/66 H 93 07/07/17 07:37 07/07/17 08:24 07/07/17 08:24 07/07/17 07:37 07/07/17 08:24 Intake & Output 07/06/17 07/07/17 07/08/17 06:59 06:59 06:59 Intake Total 0 4045 Balance 0 4045 Weight 49.5 kg 55.6 kg General appearance: PRESENT: no acute distress, cooperative, thin Head exam: PRESENT: atraumatic, normocephalic Eye exam: PRESENT: conjunctiva pink, EOMI, PERRLA Ear exam: PRESENT: normal external ear exam Mouth exam: PRESENT: moist Neck exam: PRESENT: full ROM. ABSENT: JVD, lymphadenopathy, tenderness Respiratory exam: PRESENT: rhonchi - Adequate movement of air Cardiovascular exam: PRESENT: RRR. ABSENT: diastolic murmur, systolic murmur Vascular exam: PRESENT: normal capillary refill GI/Abdominal exam: PRESENT: normal bowel sounds, soft. ABSENT: tenderness Extremities exam: PRESENT: full ROM. ABSENT: pedal edema Musculoskeletal exam: PRESENT: ambulatory Neurological exam: PRESENT: alert, awake, oriented to person, oriented to place , oriented to time Psychiatric exam: PRESENT: anxious Skin exam: PRESENT: intact, normal color Results Laboratory Results: 07/07/17 06:36 07/07/17 06:36 07/06/17 07/07/17 07/07/17 06:24 06:36 06:36 WBC 10.5 RBC 3.92 Hgb 11.0 L Hct 33.0 L MCV 84 MCH 28.1 MCHC 33.3 RDW 14.7 H Plt Count 222 Seg Neutrophils % 91.3 H Lymphocytes % 5.7 L Monocytes % 3.0 Eosinophils % 0.0 Basophils % 0.0 Absolute Neutrophils 9.6 H Absolute Lymphocytes 0.6 Absolute Monocytes 0.3 Absolute Eosinophils 0.0 Absolute Basophils 0.0 Sodium 148.7 H Potassium 3.4 L Chloride 109 H Carbon Dioxide 26 Anion Gap 14 BUN 24 H Creatinine 0.51 L Est GFR ( Amer) > 60 Est GFR (Non-Af Amer) > 60 Glucose 127 H Calcium 9.3 Magnesium 2.1 Transferrin 191 L 07/05/17 07/06/17 18:55 01:01 Troponin I 0.042 0.016 Impressions: Chest X-Ray 07/06/17 00:00 IMPRESSION: Similar small left basilar airspace opacities -effusion. Assessment & Plan - Diagnosis (1) Pneumonia Qualifiers: Pneumonia type: aspiration pneumonia Laterality: left Lung location: lower lobe of lung Is this a current diagnosis for this admission?: Yes Plan: Patient has been experiencing coughing spell when eating and getting chest congestion afterwords which had been witnessed by nursing staff. The latter had been advised as to use the PEG tube at all time. Also will bring back dietitian for further recommendations of increasing tube feedings since it is evident that patient appears to be aspirating. We will consult our speech therapist to assist since we do not have access to the swallowing study done as outpatient. Will continue with Zosyn. (2) Elevated brain natriuretic peptide (BNP) level Is this a current diagnosis for this admission?: Yes Plan: May relate to pneumonic process. Echocardiogram ordered and result is pending (3) Anemia Qualifiers: Anemia type: iron deficiency Iron deficiency anemia type: inadequate dietary iron intake Qualified Code(s): D50.8 - Other iron deficiency anemias Is this a current diagnosis for this admission?: Yes Plan: Continue iron supplementation (4) History of stroke Is this a current diagnosis for this admission?: Yes Plan: Patient presents with aphasia and mild left-sided hemiparesis. Supportive. OT and PT consulted for the purpose of rehab. To continue Jevity as per dietitian' s initial recommendation. Patient appears to be somewhat afraid of going to rehab. Is very difficult to communicate with patient due to aphasia (5) HTN (hypertension) Qualifiers: Hypertension type: essential hypertension Qualified Code(s): I10 - Essential (primary) hypertension Is this a current diagnosis for this admission?: Yes Plan: Continue current management (6) Hypernatremia Is this a current diagnosis for this admission?: Yes Plan: Patient will be placed on D5 and half-normal saline and will trend (7) Hypokalemia due to inadequate potassium intake Is this a current diagnosis for this admission?: Yes Plan: Replace via p.o. and IV. To trend - Time Time Spent with patient: 15-24 minutes Medications reviewed and adjusted accordingly: Yes Anticipated discharge: Acute Rehab Within: within 48 hours - Inpatient Certification Based on my medical assessment, after consideration of the patient's comorbidities, presenting symptoms, or acuity I expect that the services needed warrant INPATIENT care.: Yes I certify that my determination is in accordance with my understanding of Medicare's requirements for reasonable and necessary INPATIENT services [42 CFR 412.3e].: Yes Medical Necessity: Need Close Monitoring Due to Risk of Patient Decompensation, Need For IV Fluids, Need for IV Antibiotics
[2017-07-07] MEDS ORDERED: METHYLPREDNISOLONE INJ 40 MG/1 ML SDV IV SCH (18:00)
--- NOTE | 2017-07-07 20:40 | XCELERA REPORT ---
[address] [address] Transthoracic Echocardiogram Report Name: ARIANA MCCARTHY Age: 71 yrs Gender: Female : 1945 Patient Status: Inpatient Patient Location: [address] [place] [address] Study Date: 07/07/2017 10:33 AM Height: 64 in Weight: 109 lb BSA: 1.5 m2 Reason For Study: elevated BNP Ordering Physician: CRISTOPHER ROGER Performed By: Valnecia Ley Interpretation Summary The left ventricular ejection fraction is normal. There is mild concentric left ventricular hypertrophy. The left ventricle is grossly normal size. Doppler measurements suggest pseudonormalized left ventricular relaxation, which is associated with grade II/IV or mild to moderate diastolic dysfunction Wall motion cannot be accurately commented on, but no definite regional wall motion abnormalities noted. The right ventricular systolic function is normal. Borderline right ventricular enlargement. The right atrium is normal in size The left atrial size is normal. There is a trace amount of mitral regurgitation There is no mitral valve stenosis. There is no aortic valve stenosis No aortic regurgitation is present. There is a mild amount of tricuspid regurgitation There is mild pulmonary hypertension by echo Right ventricular systolic pressure is estimated to be elevated at 30- 40mmHg. The aortic root is not well visualized but is probably normal size. The inferior vena cava was not well visualized There is no pericardial effusion. MMode/2D Measurements & Calculations RVDd: 3.0 cm LVIDd: 3.9 cm FS: 34.4 % Ao root diam: 2.5 cm IVSd: 0.95 cm LVIDs: 2.6 cm EDV(Teich): 67.9 ml LVPWd: 0.77 cm ESV(Teich): 24.4 ml Ao root area: 5.1 cm2 EF(Teich): 64.0 % LA dimension: 2.5 cm Doppler Measurements & Calculations MV E max krystina: MV P1/2t max krystina: Ao V2 max: LV V1 max P.5 cm/sec 73.5 cm/sec 107.9 cm/sec 3.3 mmHg MV A max krystina: MV P1/2t: 70.1 msec Ao max PG: LV V1 max: 79.0 cm/sec 4.7 mmHg 90.8 cm/sec MV E/A: 0.93 MVA(P1/2t): 3.1 cm2 MV dec slope: 307.2 cm/sec2 MV dec time: 0.24 sec PA V2 max: TR max krystina: 80.9 cm/sec 275.5 cm/sec PA max PG: TR max P.4 mmHg 2.6 mmHg Left Ventricle The left ventricle is grossly normal size. There is mild concentric left ventricular hypertrophy. The left ventricular ejection fraction is normal. Doppler measurements suggest pseudonormalized left ventricular relaxation, which is associated with grade II/IV or mild to moderate diastolic dysfunction. Wall motion cannot be accurately commented on, but no definite regional wall motion abnormalities noted. Right Ventricle Borderline right ventricular enlargement. There is normal right ventricular wall thickness. The right ventricular systolic function is normal. Atria The right atrium is normal in size. The left atrial size is normal. Interarterial septum not well visualized and not well dopplered. Cannot comment on ASD/PFO presence. Mitral Valve The mitral valve is grossly normal. There is no mitral valve stenosis. There is a trace amount of mitral regurgitation. Aortic Valve The aortic valve is grossly normal. There is no aortic valve stenosis. No aortic regurgitation is present. Tricuspid Valve The tricuspid valve is not well visualized, but is grossly normal. There is no tricuspid stenosis. There is a mild amount of tricuspid regurgitation. There is mild pulmonary hypertension by echo. Right ventricular systolic pressure is estimated to be elevated at 30-40mmHg. Pulmonic Valve The pulmonic valve is not well visualized. Great Vessels The aortic root is not well visualized but is probably normal size. The inferior vena cava was not well visualized. Effusions There is no pericardial effusion. : CRISTOPHER ROGER > Humberto Luu
[2017-07-08] MEDS: POTASSI CL 40 MEQ/D5-1/2NS 1L 40 MEQ/1,000 ML RTUINJ IV PRN (02:12)
[2017-07-08 05:08] LABS: ABSOLUTE LYMPHOCYTES (AUTO) 0.9 10^3/uL (0.5-4.7); ABSOLUTE MONOCYTES (AUTO) 0.6 10^3/uL (0.1-1.4); ABSOLUTE NEUT (AUTO) 9.1 10^3/uL (1.7-8.2); BASOPHILS % (AUTO) 0.1 % (0-2); HEMATOCRIT 33.2 % (36.0-47.0); HEMOGLOBIN 10.9 g/dL (12.0-15.5); LYMPHOCYTES % (AUTO) 8.5 % (13-45); MEAN CORPUSCULAR HEMOGLOBIN 27.9 pg (27.0-33.4); MEAN CORPUSCULAR HGB CONC 32.9 g/dL (32.0-36.0); MEAN CORPUSCULAR VOLUME 85 fl (80-97); MONOCYTES % (AUTO) 5.7 % (3-13); PLATELET COUNT 251 10^3/uL (150-450); RED BLOOD COUNT 3.92 10^6/uL (3.72-5.28); RED CELL DISTRIBUTION WIDTH 14.8 % (11.5-14.0); SEGMENTED NEUTROPHILS % (AUTO) 85.7 % (42-78); TOTAL CELLS COUNTED % (AUTO) 100 %; WHITE BLOOD COUNT 10.7 10^3/uL (4.0-10.5)
[2017-07-08 05:21] LABS: ANION GAP 12 (5-19); BLOOD UREA NITROGEN 24 mg/dL (7-20); CALCIUM 9.3 mg/dL (8.4-10.2); CARBON DIOXIDE 26 mmol/L (22-30); CHLORIDE 110 mmol/L (98-107); GLUCOSE 181 mg/dL (75-110)
[2017-07-08 05:28] LABS: POTASSIUM 4.4 mmol/L (3.6-5.0)
[2017-07-08] MEDS: PIPERACILLIN SODIUM/TAZOBACTAM 3.375 GM in NORMAL SALINE 100 ML IV SCH (05:51)
[2017-07-08] MEDS: HEPARIN SOD (PORCINE) 5,000 UNIT/ML 1 ML SYRINGE SUBCUT SCH ×3 (05:51→23:29)
[2017-07-08] MEDS: METHYLPREDNISOLONE INJ 40 MG/1 ML SDV IV SCH (05:51)
[2017-07-08] MEDS: IPRATROPIUM/ALBUTEROL 0.5-2.5 MG/3 ML AMPUL NEB SCH ×3 (07:51→20:34)
[2017-07-08] MEDS: LISINOPRIL 10 MG TABLET PO SCH (09:40)
[2017-07-08] MEDS: SCOPOLAMINE HYDROBROMIDE 1.5 MG PATCH.TD72 TD SCH (09:40)
[2017-07-08] MEDS: METOPROLOL SUCCINATE 50 MG TAB.SR.24H PO SCH ×2 (09:40→23:28)
[2017-07-08] MEDS: FERROUS SULFATE 325 MG TABLET PO SCH ×2 (09:41→17:32)
[2017-07-08] MEDS: GUAIFENESIN 600 MG TABLET.SA PO SCH ×2 (09:41→23:28)
[2017-07-08] MEDS: ASPIRIN 81 MG TABLET, CHEWABLE PO SCH (09:41)
[2017-07-08] MEDS: AMLODIPINE BESYLATE 10 MG TABLET PO SCH (09:41)
[2017-07-08] MEDS: SERTRALINE HCL 50 MG TABLET PO SCH (09:41)
[2017-07-08] MEDS: NYSTATIN 500000 UNIT/5 ML UDCUP PO SCH ×3 (13:13→23:29)
[2017-07-08] MEDS: AMOXICILLIN TR/POT CLAVULANATE 500-125 MG TAB PO SCH ×2 (14:20→23:28)
--- NOTE | 2017-07-08 15:48 | PDOC PROGRESS REPORT ---
Subjective Progress Note for:: 07/08/17 Subjective:: No complaints. Communication is difficult due to severe aphasia. Nurse reports oral thrush Review of systems Difficult to obtain due to severe aphasia All significant diagnostics and laboratories have been reviewed Reason For Visit: PNEUMONIA Physical Exam Vital Signs: Temp Pulse Resp BP Pulse Ox 97.4 F 71 18 137/70 H 95 07/08/17 07:41 07/08/17 07:51 07/08/17 07:51 07/08/17 07:41 07/08/17 07:51 Intake & Output 07/07/17 07/08/17 07/09/17 06:59 06:59 06:59 Intake Total 4045 2462 Balance 4045 2462 Weight 55.6 kg 56.2 kg General appearance: PRESENT: no acute distress, cooperative, thin Head exam: PRESENT: atraumatic, normocephalic Eye exam: PRESENT: conjunctiva pink, EOMI, PERRLA Ear exam: PRESENT: normal external ear exam Mouth exam: PRESENT: moist Neck exam: PRESENT: full ROM. ABSENT: JVD, lymphadenopathy, tenderness Respiratory exam: PRESENT: clear to auscultation landon Cardiovascular exam: PRESENT: RRR. ABSENT: diastolic murmur, systolic murmur Vascular exam: PRESENT: normal capillary refill GI/Abdominal exam: PRESENT: normal bowel sounds, soft. ABSENT: tenderness Extremities exam: ABSENT: full ROM Musculoskeletal exam: PRESENT: ambulatory Neurological exam: PRESENT: alert, awake, oriented to person, oriented to place , oriented to time, aphasic Psychiatric exam: PRESENT: appropriate affect, normal mood Skin exam: PRESENT: intact, normal color Results Laboratory Results: 07/08/17 04:14 07/08/17 04:14 07/08/17 07/08/17 04:14 04:14 WBC 10.7 H RBC 3.92 Hgb 10.9 L Hct 33.2 L MCV 85 MCH 27.9 MCHC 32.9 RDW 14.8 H Plt Count 251 Seg Neutrophils % 85.7 H Lymphocytes % 8.5 L Monocytes % 5.7 Eosinophils % 0.0 Basophils % 0.1 Absolute Neutrophils 9.1 H Absolute Lymphocytes 0.9 Absolute Monocytes 0.6 Absolute Eosinophils 0.0 Absolute Basophils 0.0 Sodium 148.0 H Potassium 4.4 D Chloride 110 H Carbon Dioxide 26 Anion Gap 12 BUN 24 H Creatinine 0.55 Est GFR ( Amer) > 60 Est GFR (Non-Af Amer) > 60 Glucose 181 H Calcium 9.3 Magnesium 2.2 07/05/17 07/06/17 18:55 01:01 Troponin I 0.042 0.016 Impressions: Chest X-Ray 07/06/17 00:00 IMPRESSION: Similar small left basilar airspace opacities -effusion. Assessment & Plan - Diagnosis (1) Pneumonia Qualifiers: Pneumonia type: aspiration pneumonia Laterality: left Lung location: lower lobe of lung Is this a current diagnosis for this admission?: Yes Plan: Continue current regimen. Patient evaluated by speech therapy and recommended to patient to continue with same outpatient regimen. However recommended for patient to be straight out at all times since appears that patient does have a reflux component (2) Anemia Qualifiers: Anemia type: iron deficiency Iron deficiency anemia type: inadequate dietary iron intake Qualified Code(s): D50.8 - Other iron deficiency anemias Is this a current diagnosis for this admission?: Yes Plan: Continue iron supplementation (3) History of stroke Is this a current diagnosis for this admission?: Yes Plan: Patient presents with aphasia and mild left-sided hemiparesis. Supportive. Wishes to go to rehab and wishes to go home with home health (4) HTN (hypertension) Qualifiers: Hypertension type: essential hypertension Qualified Code(s): I10 - Essential (primary) hypertension Is this a current diagnosis for this admission?: Yes Plan: Continue current management (5) Hypernatremia Is this a current diagnosis for this admission?: Yes Plan: To add water through the PEG and trend (6) Hypokalemia due to inadequate potassium intake Is this a current diagnosis for this admission?: Yes Plan: Replaced (7) Diastolic dysfunction with chronic heart failure Is this a current diagnosis for this admission?: Yes Plan: BMP mostly elevated due to pneumonia. Will continue with current antihypertensive regimen (8) Oral thrush Is this a current diagnosis for this admission?: Yes Plan: Nystatin oral (9) Hyperglycemia Is this a current diagnosis for this admission?: Yes Plan: Order hemoglobin A1c - Time Time Spent with patient: 15-24 minutes Medications reviewed and adjusted accordingly: Yes Anticipated discharge: Home with Homehealth Within: within 24 hours - Inpatient Certification Based on my medical assessment, after consideration of the patient's comorbidities, presenting symptoms, or acuity I expect that the services needed warrant INPATIENT care.: Yes I certify that my determination is in accordance with my understanding of Medicare's requirements for reasonable and necessary INPATIENT services [42 CFR 412.3e].: Yes Medical Necessity: Significant Comorbidiites Make Outpatient Treatment Too Risky , Need Close Monitoring Due to Risk of Patient Decompensation
[2017-07-08] MEDS ORDERED: ONDANSETRON HCL INJ/PF 4 MG/2 ML SDV IV PRN (19:49)
[2017-07-09] MEDS: HEPARIN SOD (PORCINE) 5,000 UNIT/ML 1 ML SYRINGE SUBCUT SCH ×3 (06:21→21:34)
[2017-07-09] MEDS: AMOXICILLIN TR/POT CLAVULANATE 500-125 MG TAB PO SCH ×3 (06:28→21:34)
[2017-07-09] MEDS: NYSTATIN 500000 UNIT/5 ML UDCUP PO SCH ×4 (06:28→23:42)
[2017-07-09 07:49] LABS: ABSOLUTE LYMPHOCYTES (AUTO) 1.2 10^3/uL (0.5-4.7); ABSOLUTE MONOCYTES (AUTO) 1.2 10^3/uL (0.1-1.4); ABSOLUTE NEUT (AUTO) 8.6 10^3/uL (1.7-8.2); BASOPHILS % (AUTO) 0.3 % (0-2); EOSINOPHILS % (AUTO) 0.2 % (0-6); HEMATOCRIT 33.7 % (36.0-47.0); HEMOGLOBIN 11.1 g/dL (12.0-15.5); LYMPHOCYTES % (AUTO) 10.9 % (13-45); MEAN CORPUSCULAR HEMOGLOBIN 27.8 pg (27.0-33.4); MEAN CORPUSCULAR HGB CONC 32.8 g/dL (32.0-36.0); MEAN CORPUSCULAR VOLUME 85 fl (80-97); MONOCYTES % (AUTO) 10.7 % (3-13); PLATELET COUNT 285 10^3/uL (150-450); RED BLOOD COUNT 3.99 10^6/uL (3.72-5.28); RED CELL DISTRIBUTION WIDTH 15.1 % (11.5-14.0); SEGMENTED NEUTROPHILS % (AUTO) 77.9 % (42-78); TOTAL CELLS COUNTED % (AUTO) 100 %; WHITE BLOOD COUNT 11.1 10^3/uL (4.0-10.5)
[2017-07-09 07:56] LABS: ANION GAP 7 (5-19); BLOOD UREA NITROGEN 30 mg/dL (7-20); CALCIUM 9.3 mg/dL (8.4-10.2); CARBON DIOXIDE 31 mmol/L (22-30); CHLORIDE 103 mmol/L (98-107); GLUCOSE 97 mg/dL (75-110); POTASSIUM 4.6 mmol/L (3.6-5.0); SODIUM 140.9 mmol/L (137-145)
[2017-07-09] MEDS: IPRATROPIUM/ALBUTEROL 0.5-2.5 MG/3 ML AMPUL NEB SCH ×3 (08:25→20:03)
[2017-07-09] MEDS: FERROUS SULFATE 325 MG TABLET PO SCH ×2 (09:23→17:29)
[2017-07-09] MEDS: AMLODIPINE BESYLATE 10 MG TABLET PO SCH (09:24)
[2017-07-09] MEDS: GUAIFENESIN 600 MG TABLET.SA PO SCH ×2 (09:24→21:34)
[2017-07-09] MEDS: SERTRALINE HCL 50 MG TABLET PO SCH (09:24)
[2017-07-09] MEDS: ASPIRIN 81 MG TABLET, CHEWABLE PO SCH (09:24)
[2017-07-09] MEDS: METOPROLOL SUCCINATE 50 MG TAB.SR.24H PO SCH ×2 (09:24→21:34)
[2017-07-09] MEDS: LISINOPRIL 10 MG TABLET PO SCH (09:24)
--- NOTE | 2017-07-09 15:07 | PDOC PROGRESS REPORT ---
Subjective Progress Note for:: 07/09/17 Subjective:: No complaints. Communication is difficult due to severe aphasia. Patient again reiterated she wanted to go home. At the time of dictating this note patient had been discharged as planned. Family came in and were in disagreement about her going home since felt that patient would benefit from going to rehab. They were under the impression that I could force this patient to go to rehab. Patient's nurse as well as case management were in the room when had the family meeting. They were made aware that I had to go by patient's wishes since she is mentally competent.Her stated that patient is difficult to tell whether she says yes or no. He was advised that if he felt that she was not competent to make the decision, for him to get a power of corporate associate attorney. Finally the decision was made to hold the discharge and make preparations for her to go for rehab as initially intended Review of systems Difficult to obtain due to severe aphasia All significant diagnostics and laboratories have been reviewed Reason For Visit: PNEUMONIA Physical Exam Vital Signs: Temp Pulse Resp BP Pulse Ox 98.3 F 70 18 117/70 95 07/09/17 12:00 07/09/17 12:00 07/09/17 12:00 07/09/17 12:00 07/09/17 12:00 Intake & Output 07/08/17 07/09/17 07/10/17 06:59 06:59 06:59 Intake Total 2462 2194 Output Total 350 Balance 2462 1844 Weight 56.2 kg 56.8 kg General appearance: PRESENT: no acute distress, cooperative, thin Head exam: PRESENT: atraumatic, normocephalic Eye exam: PRESENT: conjunctiva pink, EOMI, PERRLA Ear exam: PRESENT: normal external ear exam Mouth exam: PRESENT: moist Neck exam: PRESENT: full ROM. ABSENT: JVD, lymphadenopathy, tenderness Respiratory exam: PRESENT: clear to auscultation landon Cardiovascular exam: PRESENT: RRR. ABSENT: diastolic murmur, systolic murmur Vascular exam: PRESENT: normal capillary refill GI/Abdominal exam: PRESENT: normal bowel sounds, soft. ABSENT: tenderness Extremities exam: PRESENT: full ROM. ABSENT: pedal edema Musculoskeletal exam: ABSENT: ambulatory Neurological exam: PRESENT: alert, awake, oriented to person, oriented to place , aphasic Skin exam: PRESENT: intact, normal color Results Laboratory Results: 07/09/17 07:15 07/09/17 07:15 07/09/17 07/09/17 07:15 07:15 WBC 11.1 H RBC 3.99 Hgb 11.1 L Hct 33.7 L MCV 85 MCH 27.8 MCHC 32.8 RDW 15.1 H Plt Count 285 Seg Neutrophils % 77.9 Lymphocytes % 10.9 L Monocytes % 10.7 Eosinophils % 0.2 Basophils % 0.3 Absolute Neutrophils 8.6 H Absolute Lymphocytes 1.2 Absolute Monocytes 1.2 Absolute Eosinophils 0.0 Absolute Basophils 0.0 Sodium 140.9 Potassium 4.6 Chloride 103 Carbon Dioxide 31 H Anion Gap 7 BUN 30 H Creatinine 0.53 Est GFR ( Amer) > 60 Est GFR (Non-Af Amer) > 60 Glucose 97 Calcium 9.3 Magnesium 1.9 07/05/17 07/06/17 18:55 01:01 Troponin I 0.042 0.016 Impressions: Chest X-Ray 07/06/17 00:00 IMPRESSION: Similar small left basilar airspace opacities -effusion. Assessment & Plan - Diagnosis (1) Pneumonia Qualifiers: Pneumonia type: aspiration pneumonia Laterality: left Lung location: lower lobe of lung Is this a current diagnosis for this admission?: Yes Plan: Continue current regimen. Patient evaluated by speech therapy and recommended to patient to continue with same outpatient regimen. However recommended for patient to be straight out at all times since appears that patient does have a reflux component. Discuss with family importance of keeping her straight when feeding and likely at night since daughter reports snoring (2) Anemia Qualifiers: Anemia type: iron deficiency Iron deficiency anemia type: inadequate dietary iron intake Qualified Code(s): D50.8 - Other iron deficiency anemias Is this a current diagnosis for this admission?: Yes Plan: Continue iron supplementation (3) History of stroke Is this a current diagnosis for this admission?: Yes Plan: Patient presents with aphasia and mild left-sided hemiparesis. Supportive. Patient now amenable to go for rehab. Made aware both patient and family that if once she goes to rehab and she does not participate or request to go home she will be discharged by the facility. (4) HTN (hypertension) Qualifiers: Hypertension type: essential hypertension Qualified Code(s): I10 - Essential (primary) hypertension Is this a current diagnosis for this admission?: Yes Plan: Continue current management (5) Hypernatremia Is this a current diagnosis for this admission?: Yes Plan: Improved (6) Hypokalemia due to inadequate potassium intake Is this a current diagnosis for this admission?: Yes Plan: Replaced (7) Diastolic dysfunction with chronic heart failure Is this a current diagnosis for this admission?: Yes Plan: BMP mostly elevated due to pneumonia. Will continue with current antihypertensive regimen (8) Oral thrush Is this a current diagnosis for this admission?: Yes Plan: Continue Nystatin oral (9) Hyperglycemia Is this a current diagnosis for this admission?: Yes Plan: Hemoglobin A1c in the prediabetic range. Will start Metformin while in-house to see if tolerates this medicine - Time Time Spent with patient: 15-24 minutes Medications reviewed and adjusted accordingly: Yes Anticipated discharge: Acute Rehab Within: within 48 hours - Inpatient Certification Based on my medical assessment, after consideration of the patient's comorbidities, presenting symptoms, or acuity I expect that the services needed warrant INPATIENT care.: Yes I certify that my determination is in accordance with my understanding of Medicare's requirements for reasonable and necessary INPATIENT services [42 CFR 412.3e].: Yes Medical Necessity: Significant Comorbidiites Make Outpatient Treatment Too Risky , Need Close Monitoring Due to Risk of Patient Decompensation
[2017-07-09] MEDS: METFORMIN HCL 500 MG TABLET PO SCH (17:28)
[2017-07-10] MEDS: AMOXICILLIN TR/POT CLAVULANATE 500-125 MG TAB PO SCH ×3 (05:58→21:34)
[2017-07-10] MEDS: HEPARIN SOD (PORCINE) 5,000 UNIT/ML 1 ML SYRINGE SUBCUT SCH ×3 (05:58→21:34)
[2017-07-10] MEDS: NYSTATIN 500000 UNIT/5 ML UDCUP PO SCH ×3 (05:58→17:22)
[2017-07-10] MEDS: IPRATROPIUM/ALBUTEROL 0.5-2.5 MG/3 ML AMPUL NEB SCH ×3 (07:51→19:42)
[2017-07-10] MEDS: METFORMIN HCL 500 MG TABLET PO SCH ×2 (09:08→17:23)
[2017-07-10] MEDS: GUAIFENESIN 600 MG TABLET.SA PO SCH ×2 (09:09→21:34)
[2017-07-10] MEDS: METOPROLOL SUCCINATE 50 MG TAB.SR.24H PO SCH ×2 (09:09→21:34)
[2017-07-10] MEDS: ASPIRIN 81 MG TABLET, CHEWABLE PO SCH (09:09)
[2017-07-10] MEDS: FERROUS SULFATE 325 MG TABLET PO SCH ×2 (09:09→17:22)
[2017-07-10] MEDS: SERTRALINE HCL 50 MG TABLET PO SCH (09:09)
[2017-07-10] MEDS: LISINOPRIL 10 MG TABLET PO SCH (12:07)
[2017-07-10] MEDS: AMLODIPINE BESYLATE 10 MG TABLET PO SCH (12:07)
--- NOTE | 2017-07-10 14:02 | PDOC PROGRESS REPORT ---
Subjective Progress Note for:: 07/10/17 Subjective:: No complaints. Communication is difficult due to severe aphasia. Patient's is at bedside. He stated that he was able to find out that patient was afraid of going to rehab because patient's daughter kept telling her that if she did not do better she was going to end up going to a [facility] Review of systems Difficult to obtain due to severe aphasia All significant diagnostics and laboratories have been reviewed Reason For Visit: PNEUMONIA Physical Exam Vital Signs: Temp Pulse Resp BP Pulse Ox 98.7 F 76 15 121/59 L 98 07/09/17 23:56 07/09/17 23:56 07/09/17 23:56 07/09/17 23:56 07/10/17 00:22 Intake & Output 07/09/17 07/10/17 07/11/17 06:59 06:59 06:59 Intake Total 2194 997 Output Total 350 Balance 1844 997 Weight 56.8 kg 55.7 kg General appearance: PRESENT: cooperative, thin Head exam: PRESENT: atraumatic, normocephalic Eye exam: PRESENT: conjunctiva pink, EOMI, PERRLA Ear exam: PRESENT: normal external ear exam Mouth exam: PRESENT: moist Neck exam: PRESENT: full ROM. ABSENT: JVD, lymphadenopathy, tenderness Respiratory exam: PRESENT: clear to auscultation landon, unlabored. ABSENT: tachypnea Cardiovascular exam: PRESENT: RRR. ABSENT: diastolic murmur, systolic murmur Vascular exam: PRESENT: normal capillary refill GI/Abdominal exam: PRESENT: normal bowel sounds, soft. ABSENT: tenderness Extremities exam: PRESENT: full ROM. ABSENT: pedal edema Musculoskeletal exam: ABSENT: ambulatory Neurological exam: PRESENT: alert, awake, oriented to person, oriented to place , oriented to time, oriented to situation, aphasic Psychiatric exam: PRESENT: appropriate affect, normal mood Skin exam: PRESENT: intact, normal color Results Laboratory Results: 07/09/17 07:15 07/09/17 07:15 07/05/17 07/06/17 18:55 01:01 Troponin I 0.042 0.016 Impressions: Chest X-Ray 07/06/17 00:00 IMPRESSION: Similar small left basilar airspace opacities -effusion. Assessment & Plan - Diagnosis (1) Pneumonia Qualifiers: Pneumonia type: aspiration pneumonia Laterality: left Lung location: lower lobe of lung Is this a current diagnosis for this admission?: Yes Plan: Continue current regimen. Patient evaluated by speech therapy and recommended to patient to continue with same outpatient regimen. However, recommended for patient to be straight out at all times since appears that patient does have a reflux component. Had discussed with family importance of keeping her straight when feeding and likely at night since daughter reports snoring (2) Anemia Qualifiers: Anemia type: iron deficiency Iron deficiency anemia type: inadequate dietary iron intake Qualified Code(s): D50.8 - Other iron deficiency anemias Is this a current diagnosis for this admission?: Yes Plan: Continue iron supplementation (3) History of stroke Is this a current diagnosis for this admission?: Yes Plan: Patient presents with aphasia and mild left-sided hemiparesis. Supportive. Patient now amenable to go for rehab. Made aware both patient and family that if once she goes to rehab and she does not participate or request to go home she will be discharged by the facility. (4) HTN (hypertension) Qualifiers: Hypertension type: essential hypertension Qualified Code(s): I10 - Essential (primary) hypertension Is this a current diagnosis for this admission?: Yes Plan: Continue current management (5) Hypernatremia Is this a current diagnosis for this admission?: Yes Plan: Improved (6) Hypokalemia due to inadequate potassium intake Is this a current diagnosis for this admission?: Yes Plan: Replaced (7) Diastolic dysfunction with chronic heart failure Is this a current diagnosis for this admission?: Yes Plan: BNP mostly elevated due to pneumonia. Will continue with current antihypertensive regimen (8) Oral thrush Is this a current diagnosis for this admission?: Yes Plan: Continue Nystatin oral (9) Hyperglycemia Is this a current diagnosis for this admission?: Yes Plan: Hemoglobin A1c in the prediabetic range. Continue Metformin while in-house to see if tolerates this medicine - Time Time Spent with patient: 15-24 minutes Medications reviewed and adjusted accordingly: Yes Anticipated discharge: Acute Rehab Within: within 48 hours - Inpatient Certification Based on my medical assessment, after consideration of the patient's comorbidities, presenting symptoms, or acuity I expect that the services needed warrant INPATIENT care.: Yes I certify that my determination is in accordance with my understanding of Medicare's requirements for reasonable and necessary INPATIENT services [42 CFR 412.3e].: Yes Medical Necessity: Need Close Monitoring Due to Risk of Patient Decompensation
[2017-07-11] MEDS: NYSTATIN 500000 UNIT/5 ML UDCUP PO SCH ×4 (00:11→16:36)
[2017-07-11] MEDS: HEPARIN SOD (PORCINE) 5,000 UNIT/ML 1 ML SYRINGE SUBCUT SCH ×3 (05:47→21:32)
[2017-07-11] MEDS: AMOXICILLIN TR/POT CLAVULANATE 500-125 MG TAB PO SCH ×3 (05:47→21:32)
[2017-07-11 06:46] LABS: HEMATOCRIT 34.7 % (36.0-47.0); HEMOGLOBIN 11.3 g/dL (12.0-15.5); MEAN CORPUSCULAR HEMOGLOBIN 27.7 pg (27.0-33.4); MEAN CORPUSCULAR HGB CONC 32.6 g/dL (32.0-36.0); MEAN CORPUSCULAR VOLUME 85 fl (80-97); PLATELET COUNT 304 10^3/uL (150-450); RED BLOOD COUNT 4.08 10^6/uL (3.72-5.28); RED CELL DISTRIBUTION WIDTH 14.9 % (11.5-14.0); WHITE BLOOD COUNT 10.2 10^3/uL (4.0-10.5)
[2017-07-11 07:02] LABS: ANION GAP 9 (5-19); BLOOD UREA NITROGEN 22 mg/dL (7-20); CARBON DIOXIDE 29 mmol/L (22-30); CHLORIDE 101 mmol/L (98-107); GLUCOSE 125 mg/dL (75-110); POTASSIUM 5.1 mmol/L (3.6-5.0); SODIUM 138.5 mmol/L (137-145)
[2017-07-11 07:37] LABS: ABSOLUTE LYMPHOCYTES# (MANUAL) 1.8 10^3/uL (0.5-4.7); ABSOLUTE MONOCYTES # (MANUAL) 1.2 10^3/uL (0.1-1.4); ABSOLUTE NEUTROPHILS# (MANUAL) 6.3 10^3/uL (1.7-8.2); BASOPHILS % (MANUAL) 0 % (0-2); EOSINOPHILS % (MANUAL) 8 % (0-6); LYMPHOCYTES % (MANUAL) 17 % (13-45); METAMYELOCYTES % (MANUAL) 2 % (0); MONOCYTES % (MANUAL) 12 % (3-13); SEGMENTED NEUTROPHILS % (MAN) 60 % (42-78); TOTAL CELLS COUNTED 100
[2017-07-11 07:39] LABS: TOXIC GRANULATION SLIGHT
[2017-07-11 07:40] LABS: ACANTHOCYTES 1+; ANISOCYTOSIS SLIGHT; OVALOCYTES SLIGHT; PLATELET COMMENT ADEQUATE; POIKILOCYTOSIS SLIGHT
[2017-07-11] MEDS: IPRATROPIUM/ALBUTEROL 0.5-2.5 MG/3 ML AMPUL NEB SCH ×3 (08:00→19:50)
[2017-07-11] MEDS: AMLODIPINE BESYLATE 10 MG TABLET PO SCH (09:15)
[2017-07-11] MEDS: ASPIRIN 81 MG TABLET, CHEWABLE PO SCH (09:15)
[2017-07-11] MEDS: GUAIFENESIN 600 MG TABLET.SA PO SCH ×2 (09:16→21:32)
[2017-07-11] MEDS: METOPROLOL SUCCINATE 50 MG TAB.SR.24H PO SCH ×2 (09:16→21:32)
[2017-07-11] MEDS: FERROUS SULFATE 325 MG TABLET PO SCH ×2 (09:16→16:36)
[2017-07-11] MEDS: SERTRALINE HCL 50 MG TABLET PO SCH (09:16)
[2017-07-11] MEDS: LISINOPRIL 10 MG TABLET PO SCH (09:16)
[2017-07-11] MEDS: METFORMIN HCL 500 MG TABLET PO SCH ×2 (09:17→16:36)
[2017-07-11] MEDS: SCOPOLAMINE HYDROBROMIDE 1.5 MG PATCH.TD72 TD SCH (09:45)
--- NOTE | 2017-07-11 12:03 | PDOC TRANSFER SUMMARY ---
General - Admit/Disc Date/PCP Admission Date/Primary Care Provider: 07/05/17 15:17 SHARI BENSON MD Discharge Date: 07/11/17 - Discharge Diagnosis (1) Pneumonia Is this a current diagnosis for this admission?: Yes (2) Acute respiratory distress Is this a current diagnosis for this admission?: Yes (3) Diastolic dysfunction with chronic heart failure Is this a current diagnosis for this admission?: Yes (4) COPD (chronic obstructive pulmonary disease) Is this a current diagnosis for this admission?: Yes (5) HTN (hypertension) Is this a current diagnosis for this admission?: Yes (6) Hypernatremia Is this a current diagnosis for this admission?: Yes (7) Hypokalemia due to inadequate potassium intake Is this a current diagnosis for this admission?: Yes (8) Anemia Is this a current diagnosis for this admission?: Yes (9) History of stroke Is this a current diagnosis for this admission?: Yes (10) Oral thrush Is this a current diagnosis for this admission?: Yes (11) Hyperglycemia Is this a current diagnosis for this admission?: Yes (12) Pulmonary hypertension Is this a current diagnosis for this admission?: Yes - Additional Information Resuscitation Status: Full Code Discharge Diet: Cardiac, Diabetic Discharge Activity: Activity As Tolerated Prescriptions: Amlodipine Besylate [Norvasc 5 mg Tablet] 5 mg PO DAILY #30 tablet Amox Tr/Potassium Clavulanate [Augmentin "500" Tablet] 1 tab PO Q8 #10 tablet Ferrous Sulfate [Feosol 325 mg Tablet] 325 mg PO BIDPCBS #60 tablet Fluconazole [Diflucan 100 Mg Tablet] 100 mg PO DAILY #5 tablet Fluticasone/Salmeterol [Advair 250-50 Diskus 28 dose] 1 inh IH Q12H #60 inhaler Guaifenesin [Mucinex Sr 600 mg Tablet.sa] 1,200 mg PO Q12 #60 tablet.sa Metformin HCl [Glucophage 500 mg Tablet] 500 mg PO BIDACBS #60 tablet Metoprolol Succinate [Toprol Xl 50 mg Tab.sr] 50 mg PO Q12 #60 tab.sr.24h Home Medications: Aspirin [Aspirin 81 mg Chewable Tablet] 81 mg PO DAILY 09/23/11 Lisinopril [Prinivil 20 mg Tablet] 20 mg PO DAILY 09/23/11 Sertraline HCl [Zoloft 50 mg Tablet] 50 mg PO DAILY 09/23/11 Lovastatin [Altoprev] 40 mg PO QHS 01/03/12 Amlodipine Besylate [Norvasc 5 mg Tablet] 5 mg PO DAILY #30 tablet 07/09/17 Amox Tr/Potassium Clavulanate [Augmentin "500" Tablet] 1 tab PO Q8 #10 tablet 07/09/17 Ferrous Sulfate [Feosol 325 mg Tablet] 325 mg PO BIDPCBS #60 tablet 07/09/17 Fluconazole [Diflucan 100 Mg Tablet] 100 mg PO DAILY #5 tablet 07/09/17 Fluticasone/Salmeterol [Advair 250-50 Diskus 28 dose] 1 inh IH Q12H #60 inhaler 07/09/17 Guaifenesin [Mucinex Sr 600 mg Tablet.sa] 1,200 mg PO Q12 #60 tablet.sa Metformin HCl [Glucophage 500 mg Tablet] 500 mg PO BIDACBS #60 tablet 07/09/17 Metoprolol Succinate [Toprol Xl 50 mg Tab.sr] 50 mg PO Q12 #60 tab.sr.24h History of Present Illness Admission Date/PCP: 07/05/17 15:17 SHARI BENSON MD History of Present Illness: ARIANA MCCARTHY is a 71 year old female was brought in by her daughter since she was concerned about patient having difficulty breathing since yesterday. Patient had an abnormal mammogram and had a sonogram scheduled on the day of admission. While getting the sonogram daughter noted the persistent difficulty in her breathing. She helps out her mother on a daily basis. Her mother complained of having a funny feeling in her chest the day prior to admission. Also patient was sounding congested. Patient had a stroke around 10 years ago and since then she had been having problems communicating and also continues having mostly right-sided weakness. Daughter also was concerned because patient had lost about 5-6 pounds in a month time. Patient does have a G-tube however is allowed to have pureed. She had swallowing evaluation recently which was ordered by her PCP, Dr Benson. Patient's daughter also stated that she is always on her stepfather's case to keep mother in an upright position in order to avoid aspiration. When patient arrived to emergency room pulse ox was 91% at room air. She was placed on 2 L by nasal cannula with improvement to 96- 98%. Patient does have a history of smoking however she quit around 10 years ago. Further workup in emergency room showed a left lower lobe pneumonia and was started on Rocephin and Zithromax IV. In addition patient was started on Solu-Medrol 125 mg IV. The hospitalist service was consulted and prompted to admit for management. Hospital Course Hospital Course: Patient was admitted under the hospitalist surgeries due to what it was deemed to be an aspiration pneumonia and required oxygen supplementation for the first 24 hours of admission. Patient is to continue Augmentin 500 mg 1 p.o. twice daily for 5 days after discharge. While in-house patient was evaluated again by speech therapy and concur with same recommendation as outpatient. Patient can take pured food during the day and tube feedings at night. Patient is to be kept in an upright position as she does have an element of reflux which may make her to aspirate. BNP was slightly elevated on admission. Echocardiogram was requested and showed a grade 2 diastolic dysfunction and mildly elevated pulmonary hypertension. The author's impression is that patient suffers from chronic congestive heart failure. Patient was gently diuresed for the purpose to decrease pulmonary pressures and blood pressure medications were adjusted. Since blood sugar was mildly elevated, hemoglobin A1c was requested and was 6.1. Patient fits criteria for prediabetes and placed patient on metformin. Also she does not carry a history of COPD but is the author's impression that she does suffer from COPD and she responded to nebulizer treatments as well. Recommend for patient to follow-up with her PCP to follow through possibly to fully verify this diagnosis. As patient does have residual right-sided weakness after her stroke she was seen by physical therapy. After long conversation with patient, and daughter, patient finally agreed for her to go to rehab. Hopefully she might be better able to participate in her care. She does have mild iron deficiency anemia and she was placed on iron supplementation. All electrolyte abnormalities were corrected. Since patient had achieved maximum benefit of hospitalization stay prompted to discharge to rehab Physical Exam Vital Signs: Temp Pulse Resp BP Pulse Ox 97.5 F 85 16 119/56 L 95 07/11/17 07:22 07/11/17 08:00 07/11/17 08:00 07/11/17 07:22 07/11/17 08:00 Intake & Output 07/10/17 07/11/17 07/12/17 06:59 06:59 06:59 Intake Total 997 2146 Balance 997 2146 Weight 55.7 kg 56.5 kg General appearance: PRESENT: no acute distress, cooperative, thin Head exam: PRESENT: atraumatic, normocephalic Eye exam: PRESENT: EOMI, PERRLA Mouth exam: PRESENT: moist Neck exam: PRESENT: full ROM. ABSENT: JVD, lymphadenopathy, tenderness Respiratory exam: PRESENT: clear to auscultation landon Cardiovascular exam: PRESENT: RRR. ABSENT: diastolic murmur, systolic murmur Vascular exam: PRESENT: normal capillary refill GI/Abdominal exam: PRESENT: normal bowel sounds, soft. ABSENT: tenderness Extremities exam: PRESENT: full ROM. ABSENT: pedal edema Musculoskeletal exam: PRESENT: ambulatory Neurological exam: PRESENT: alert, awake, aphasic Psychiatric exam: PRESENT: appropriate affect, normal mood Skin exam: PRESENT: intact, normal color Results Laboratory Results: 07/11/17 05:30 07/11/17 05:30 07/11/17 07/11/17 05:30 05:30 WBC 10.2 RBC 4.08 Hgb 11.3 L Hct 34.7 L MCV 85 MCH 27.7 MCHC 32.6 RDW 14.9 H Plt Count 304 Seg Neutrophils % Not Reportable Lymphocytes % Not Reportable Monocytes % Not Reportable Eosinophils % Not Reportable Basophils % Not Reportable Absolute Neutrophils Not Reportable Absolute Lymphocytes Not Reportable Absolute Monocytes Not Reportable Absolute Eosinophils Not Reportable Absolute Basophils Not Reportable Sodium 138.5 Potassium 5.1 H Chloride 101 Carbon Dioxide 29 Anion Gap 9 BUN 22 H Creatinine 0.58 Est GFR ( Amer) > 60 Est GFR (Non-Af Amer) > 60 Glucose 125 H Calcium 9.0 Magnesium 1.9 07/05/17 07/06/17 18:55 01:01 Troponin I 0.042 0.016 Impressions: Chest X-Ray 07/06/17 00:00 IMPRESSION: Similar small left basilar airspace opacities -effusion. Transfer Plan - Disposition Transfer Plan: Discharge to [facility] for rehab - Time Spent with Patient Time spent with patient: Greater than 30 Minutes Qualifiers - * PATIENT BEING DISCHARGED WITH ANY OF THE FOLLOWING DIAGNOSIS: No
[2017-07-12] MEDS: NYSTATIN 500000 UNIT/5 ML UDCUP PO SCH ×2 (00:09→06:14)
[2017-07-12] MEDS: AMOXICILLIN TR/POT CLAVULANATE 500-125 MG TAB PO SCH (06:14)
[2017-07-12] MEDS: HEPARIN SOD (PORCINE) 5,000 UNIT/ML 1 ML SYRINGE SUBCUT SCH (06:14)
[2017-07-12] MEDS: IPRATROPIUM/ALBUTEROL 0.5-2.5 MG/3 ML AMPUL NEB SCH (07:38)
[2017-07-12] MEDS: SERTRALINE HCL 50 MG TABLET PO SCH (09:32)
[2017-07-12] MEDS: METFORMIN HCL 500 MG TABLET PO SCH (09:32)
[2017-07-12] MEDS: LISINOPRIL 10 MG TABLET PO SCH (09:32)
[2017-07-12] MEDS: FERROUS SULFATE 325 MG TABLET PO SCH (09:32)
[2017-07-12] MEDS: GUAIFENESIN 600 MG TABLET.SA PO SCH (09:33)
[2017-07-12] MEDS: METOPROLOL SUCCINATE 50 MG TAB.SR.24H PO SCH (09:33)
[2017-07-12] MEDS: AMLODIPINE BESYLATE 10 MG TABLET PO SCH (09:33)
[2017-07-12] MEDS: ASPIRIN 81 MG TABLET, CHEWABLE PO SCH (09:34)
[2017-07-12 12:09] VITALS: BP 101/76
--- NOTE | 2017-07-12 13:23 | PDOC PROGRESS REPORT ---
Subjective Progress Note for:: 07/12/17 Subjective:: No complaints. Patient stayed overnight because there was a forearm that was not filled in yesterday. Nurse reported clogging of PEG tube. Review of systems Difficult to obtain due to severe aphasia All significant diagnostics and laboratories have been reviewed Reason For Visit: PNEUMONIA Physical Exam Vital Signs: Temp Pulse Resp BP Pulse Ox 98.5 F 88 18 118/57 L 94 07/12/17 07:37 07/12/17 07:39 07/12/17 07:39 07/12/17 07:37 07/12/17 07:39 Intake & Output 07/11/17 07/12/17 07/13/17 06:59 06:59 06:59 Intake Total 2146 1236 Balance 2146 1236 Weight 56.5 kg 55.1 kg General appearance: PRESENT: no acute distress, cooperative, thin Head exam: PRESENT: atraumatic, normocephalic Eye exam: PRESENT: conjunctiva pink, EOMI, PERRLA Ear exam: PRESENT: normal external ear exam Mouth exam: PRESENT: moist Neck exam: PRESENT: full ROM. ABSENT: JVD, lymphadenopathy, tenderness Respiratory exam: PRESENT: clear to auscultation [place] Cardiovascular exam: PRESENT: RRR. ABSENT: diastolic murmur, systolic murmur Vascular exam: PRESENT: normal capillary refill GI/Abdominal exam: PRESENT: normal bowel sounds, soft. ABSENT: tenderness Extremities exam: PRESENT: full ROM Musculoskeletal exam: ABSENT: ambulatory Neurological exam: PRESENT: alert, awake, aphasic Skin exam: PRESENT: intact, normal color Results Laboratory Results: 07/11/17 05:30 07/11/17 05:30 07/05/17 07/06/17 18:55 01:01 Troponin I 0.042 0.016 Impressions: Chest X-Ray 07/06/17 00:00 IMPRESSION: Similar small left basilar airspace opacities -effusion. Assessment & Plan - Diagnosis (1) Pneumonia Qualifiers: Pneumonia type: aspiration pneumonia Laterality: left Lung location: lower lobe of lung Is this a current diagnosis for this admission?: Yes Plan: Continue current regimen. (2) Acute respiratory distress Is this a current diagnosis for this admission?: Yes Plan: Resolved (3) Diastolic dysfunction with chronic heart failure Is this a current diagnosis for this admission?: Yes Plan: Continue current regimen (4) COPD (chronic obstructive pulmonary disease) Is this a current diagnosis for this admission?: Yes Plan: Continue prescribed regimen (5) HTN (hypertension) Qualifiers: Hypertension type: essential hypertension Qualified Code(s): I10 - Essential (primary) hypertension Is this a current diagnosis for this admission?: Yes Plan: Continue current management (6) Hypernatremia Is this a current diagnosis for this admission?: Yes Plan: Improved (7) Hypokalemia due to inadequate potassium intake Is this a current diagnosis for this admission?: Yes Plan: Replaced (8) Anemia Qualifiers: Anemia type: iron deficiency Iron deficiency anemia type: inadequate dietary iron intake Qualified Code(s): D50.8 - Other iron deficiency anemias Is this a current diagnosis for this admission?: Yes Plan: Continue iron supplementation (9) History of stroke Is this a current diagnosis for this admission?: Yes Plan: Patient presents with aphasia and mild left-sided hemiparesis. For rehab. Patient now amenable to go for rehab. Made aware both patient and family that if once she goes to rehab and she does not participate or request to go home she will be discharged by the facility. (10) Oral thrush Is this a current diagnosis for this admission?: Yes Plan: Continue Nystatin oral (11) Hyperglycemia Is this a current diagnosis for this admission?: Yes Plan: Hemoglobin A1c in the prediabetic range. Continue Metformin (12) Pulmonary hypertension Is this a current diagnosis for this admission?: Yes Plan: Was for decompensation (13) PEG tube malfunction Is this a current diagnosis for this admission?: Yes Plan: Relief of occlusion after consulting interventional radiology. Appears that a wire was inserted via fluoroscopy and they were able to relieve the occlusion. Patient seems stable was transferred for rehab - Time Time Spent with patient: 15-24 minutes Anticipated discharge: SNF Within: Other - today - Inpatient Certification Based on my medical assessment, after consideration of the patient's comorbidities, presenting symptoms, or acuity I expect that the services needed warrant INPATIENT care.: No I certify that my determination is in accordance with my understanding of Medicare's requirements for reasonable and necessary INPATIENT services [42 CFR 412.3e].: Yes Medical Necessity: Significant Comorbidiites Make Outpatient Treatment Too Risky
--- NOTE | 2017-07-12 14:32 | RADIOLOGY REPORT (SQ) ---
EXAM DESCRIPTION: INJECT EXISTING/TUBE PLACEMENT; REPOSITION FEEDING TUBE COMPLETED DATE/TIME: 07/12/2017 2:27 pm; 07/12/2017 2:29 pm REASON FOR STUDY: Malfunctioning G tube ,Gt check COMPARISON: G-tube contrast injection 01/12/2012 FLUOROSCOPY TIME: 2 minutes 13 seconds 6 fluoroscopy images saved to PACS. TECHNIQUE: Injection of contrast through existing catheter. Fluoroscopic spot films saved to PACS d emonstrating final catheter position. LIMITATIONS: None. FINDINGS: CONTRAST INJECTED: 35 mL Gastrografin Initially contrast was difficult to inject through the catheter. The catheter was suspected to be cl ogged. A guidewire was advanced into the catheter and contrast was injected again. The catheter can now be flushed easily. TUBE POSITION: The tip of the catheter is within the antrum of the stomach. Contrast can be seen empt zeny out of the stomach and into the small intestine. IMPRESSION: G-TUBE IN SATISFACTORY POSITION AND WORKING PROPERLY. COMMENT: These findings were called to the the patient's RN at completion of the study approximate 1 130 a.m. Quality ID 145: Final reports for procedures using fluoroscopy that document radiation exposure lauro kwame, or exposure time and number of fluorographic images (if radiation exposure indices are not avail able) TECHNICAL DOCUMENTATION: JOB ID: [id number] [employer]- All Rights Reserved Reading location - IP/workstation name: [email or web address]
--- NOTE | 2017-07-12 14:54 | RADIOLOGY REPORT (SQ) ---
EXAM DESCRIPTION: INJECT EXISTING/TUBE PLACEMENT; REPOSITION FEEDING TUBE COMPLETED DATE/TIME: 07/12/2017 2:27 pm; 07/12/2017 2:29 pm REASON FOR STUDY: Malfunctioning G tube ,Gt check COMPARISON: G-tube contrast injection 01/12/2012 FLUOROSCOPY TIME: 2 minutes 13 seconds 6 fluoroscopy images saved to PACS. TECHNIQUE: Injection of contrast through existing catheter. Fluoroscopic spot films saved to PACS d emonstrating final catheter position. LIMITATIONS: None. FINDINGS: CONTRAST INJECTED: 35 mL Gastrografin Initially contrast was difficult to inject through the catheter. The catheter was suspected to be cl ogged. A guidewire was advanced into the catheter and contrast was injected again. The catheter can now be flushed easily. TUBE POSITION: The tip of the catheter is within the antrum of the stomach. Contrast can be seen empt zeny out of the stomach and into the small intestine. IMPRESSION: G-TUBE IN SATISFACTORY POSITION AND WORKING PROPERLY. COMMENT: These findings were called to the the patient's RN at completion of the study approximate 1 130 a.m. Quality ID 145: Final reports for procedures using fluoroscopy that document radiation exposure lauro kwame, or exposure time and number of fluorographic images (if radiation exposure indices are not avail able) TECHNICAL DOCUMENTATION: JOB ID: [id number] [employer]- All Rights Reserved Reading location - IP/workstation name: [email or web address]
== END 2017-07-12 13:16 | DRG 178 ==
LOC: ER 12:07 → EH 15:17 → 4S 20:21 → 4W 07-10 23:45 → 4N 07-11 17:30
PROVIDERS: ADMIT Internal Medicine; ATTEND Internal Medicine
PROC: 3E0F73Z Introduction of Anti-inflammatory into Respiratory Tract, Via Natural or Artificial Opening (ICD-10-PCS; principal; 2017-07-05)
DX: J69.0 Pneumonitis due to inhalation of food and vomit (principal); I69.351 Hemiplegia and hemiparesis following cerebral infarction affecting right dominant side; E87.0 Hyperosmolality and hypernatremia; B37.0 Candidal stomatitis; I50.32 Chronic diastolic (congestive) heart failure; Z43.1 Encounter for attention to gastrostomy; E78.00 Pure hypercholesterolemia, unspecified; K21.9 Gastro-esophageal reflux disease without esophagitis; M19.90 Unspecified osteoarthritis, unspecified site; D50.8 Other iron deficiency anemias; E78.5 Hyperlipidemia, unspecified; E87.6 Hypokalemia; I11.0 Hypertensive heart disease with heart failure; R73.9 Hyperglycemia, unspecified; J44.9 Chronic obstructive pulmonary disease, unspecified; I27.20 Pulmonary hypertension, unspecified; R06.00 Dyspnea, unspecified; R73.03 Prediabetes; F32.9 Major depressive disorder, single episode, unspecified; I69.320 Aphasia following cerebral infarction; Z87.891 Personal history of nicotine dependence; Z88.6 Allergy status to analgesic agent; Z79.82 Long term (current) use of aspirin; Z82.3 Family history of stroke; Z83.3 Family history of diabetes mellitus; Z80.9 Family history of malignant neoplasm, unspecified
CPT/HCPCS: 36415; 43761; 49465; 71045; 76000; 76642; 80048; 80053; 82607; 82728; 82746; 82803; 83036; 83540; 83550; 83605; 83735; 83880; 84466; 84484; 85025; 85045; 87040; 93005; 93010; 93306; 94640; 96361; 96374; 99285; C1769; G8978-GP; G8979-GP; G8996-GN; G8997-GN; G8998-GN; J0696; J1644; J1940; J2405; J2543; J2920; J2930; J3480; J7030; J7620

== ENCOUNTER → 2017-07-05 | Outpatient (CLI) | payer MEDICARE, BC ==
--- NOTE | 2017-07-07 07:09 | WOMENS IMAGING REPORT ---
EXAM DESCRIPTION: RIGHT DIAGNOSTIC MAMMO W/CAD; U/S BREAST UNILAT LIMITED COMPLETED DATE/TIME: 07/05/2017 10:34 am; 07/05/2017 10:59 am REASON FOR STUDY: UNSPECIFIED LUMP; N63.41; RIGHT BREAST MASS; N63.41 N63.41 UNSPECIFIED LUMP IN RI GHT BREAST, SUBAREOLAR COMPARISON: Multiple mammograms since 2011 Right breast ultrasound 09/06/2011 TECHNIQUE: Cone compression craniocaudal and mediolateral oblique images of the breast recorded with digital acquisition. Additional right breast 90 mediolateral view, repeat right CC view. Right breast ultrasound was also performed. LIMITATIONS: None. FINDINGS: BREAST: Right MASSES: A retroareolar nodule is present mammographically which was demonstrated at ultrasound today, to represent a benign cyst, 14 x 6 mm in size. CALCIFICATIONS: No new or suspicious calcifications. ARCHITECTURAL DISTORTION: None. DEVELOPING DENSITY: None. ASYMMETRY: None noted. OTHER: No other significant findings. Read with the assistance of CAD. .[facility] - R2 Cenova Version 1.3 .[facility] Imaging - R2 Cenova Version 1.3 .[facility] - R2 Cenova Version 2.4 .[facility] - R2 Cenova Version 2.4 .[facility] - R2 [employer] Version 9.2 Right breast ultrasound: Ultrasound of the right retroareolar region demonstrates a anechoic cyst with good acoustic through t ransmission in the immediate retroareolar region measuring 14 x 6 mm in size (was 16 x 8 mm in size a 2011). IMPRESSION: No mammographic or sonographic evidence for malignancy right breast. Patient should return to yearly bilateral screening in June 2018 BREAST DENSITY: b. There are scattered areas of fibroglandular density. BIRAD: 2 Benign findings. RECOMMENDATION: RECOMMENDED FOLLOW UP: Please continue yearly bilateral screening mammography/ tomos ynthesis in June 2018 SPECIFIC INTERVENTION/IMAGING/CONSULTATION RECOMMENDED:No additional intervention/ imaging/consultati on needed at this time. COMMUNICATION:The negative/benign results were communicated to the patient. COMMENT: The patient has been notified of the results by letter per SA requirements. Additional no tification policies are in place for contacting patient with suspicious or incomplete findings. Quality ID #[id number]: The [employer] recommends an annual screening mammogram for women aged 40 years or over. This facility utilizes a reminder system to ensure that all patients receive reminder letters, and/or direct phone calls for appointments. This includes reminders for routine scr eening mammograms, diagnostic mammograms, or other Breast Imaging Interventions when appropriate. Th is patient will be placed in the appropriate reminder system. The [employer] (ACR) has developed recommendations for screening MRI of the breast s in certain patient populations, to be used in conjunction with mammography. Breast MRI surveillanc e may be appropriate for women with more than 20% lifetime risk of developing breast cancer as deter mined by genetic testing, significant family history of the disease, or history of mantle radiation f or Hodgkins Disease. ACR Practice Guidelines 2008. TECHNICAL DOCUMENTATION: FINDING NUMBER: (1) ASSESSMENT: (1) JOB ID: [id number]- All Rights Reserved Reading location - IP/workstation name: [email or web address]
--- NOTE | 2017-07-07 07:09 | WOMENS IMAGING REPORT ---
EXAM DESCRIPTION: RIGHT DIAGNOSTIC MAMMO W/CAD; U/S BREAST UNILAT LIMITED COMPLETED DATE/TIME: 07/05/2017 10:34 am; 07/05/2017 10:59 am REASON FOR STUDY: UNSPECIFIED LUMP; N63.41; RIGHT BREAST MASS; N63.41 N63.41 UNSPECIFIED LUMP IN RI GHT BREAST, SUBAREOLAR COMPARISON: Multiple mammograms since 2011 Right breast ultrasound 09/06/2011 TECHNIQUE: Cone compression craniocaudal and mediolateral oblique images of the breast recorded with digital acquisition. Additional right breast 90 mediolateral view, repeat right CC view. Right breast ultrasound was also performed. LIMITATIONS: None. FINDINGS: BREAST: Right MASSES: A retroareolar nodule is present mammographically which was demonstrated at ultrasound today, to represent a benign cyst, 14 x 6 mm in size. CALCIFICATIONS: No new or suspicious calcifications. ARCHITECTURAL DISTORTION: None. DEVELOPING DENSITY: None. ASYMMETRY: None noted. OTHER: No other significant findings. Read with the assistance of CAD. .[facility] - R2 Cenova Version 1.3 .[facility] Imaging - R2 Cenova Version 1.3 .[facility] Imaging - R2 Cenova Version 2.4 .[facility] - R2 Cenova Version 2.4 .[facility] - R2 Demur[employer] Worker Version 9.2 Right breast ultrasound: Ultrasound of the right retroareolar region demonstrates a anechoic cyst with good acoustic through t ransmission in the immediate retroareolar region measuring 14 x 6 mm in size (was 16 x 8 mm in size a 2011). IMPRESSION: No mammographic or sonographic evidence for malignancy right breast. Patient should return to yearly bilateral screening in June 2018 BREAST DENSITY: b. There are scattered areas of fibroglandular density. BIRAD: 2 Benign findings. RECOMMENDATION: RECOMMENDED FOLLOW UP: Please continue yearly bilateral screening mammography/ tomos ynthesis in June 2018 SPECIFIC INTERVENTION/IMAGING/CONSULTATION RECOMMENDED:No additional intervention/ imaging/consultati on needed at this time. COMMUNICATION:The negative/benign results were communicated to the patient. COMMENT: The patient has been notified of the results by letter per SA requirements. Additional no tification policies are in place for contacting patient with suspicious or incomplete findings. Quality ID #[id number]: The [employer] recommends an annual screening mammogram for women aged 40 years or over. This facility utilizes a reminder system to ensure that all patients receive reminder letters, and/or direct phone calls for appointments. This includes reminders for routine scr eening mammograms, diagnostic mammograms, or other Breast Imaging Interventions when appropriate. Th is patient will be placed in the appropriate reminder system. The [employer] (ACR) has developed recommendations for screening MRI of the breast s in certain patient populations, to be used in conjunction with mammography. Breast MRI surveillanc e may be appropriate for women with more than 20% lifetime risk of developing breast cancer as deter mined by genetic testing, significant family history of the disease, or history of mantle radiation f or Hodgkins Disease. ACR Practice Guidelines 2008. TECHNICAL DOCUMENTATION: FINDING NUMBER: (1) ASSESSMENT: (1) JOB ID: [id number] [employer]- All Rights Reserved Reading location - IP/workstation name: [facility]
== END ==
LOC: WI 10:17
PROVIDERS: ATTEND Physician Assistant Medical
DX: N63.41 Unspecified lump in right breast, subareolar (principal)
CPT/HCPCS: 76642

== ENCOUNTER 2018-01-17 15:13 | Day surgery (SDC) | payer MEDICARE, BC ==
[2018-01-17] MEDS ORDERED: ONDANSETRON HCL INJ/PF 4 MG/2 ML SDV ONE (15:33)
[2018-01-17] MEDS ORDERED: FLUMAZENIL INJ 0.5 MG/5 ML VIAL ONE (15:34)
[2018-01-17] MEDS ORDERED: GLUCAGON,HUMAN RECOMB 1 MG INJ ONE ×2 (15:34→17:33)
[2018-01-17] MEDS ORDERED: NALOXONE HCL INJ/PF 0.4 MG/1 ML SDV ONE (15:34)
[2018-01-17] MEDS ORDERED: EPINEPHRINE INJ 1 MG/10 ML DISP.SYRIN ONE (15:34)
[2018-01-17] MEDS ORDERED: FENTANYL CITRATE INJ/PF 100 MCG/2 ML AMPUL ONE (15:34)
[2018-01-17] MEDS: MIDAZOLAM 2 MG/2 ML INJ ONE ×2 (16:19→16:25)
--- NOTE | 2018-01-17 16:55 | Operative Report ---
Operative Report DATE OF SURGERY: 01/17/18 Operative Report: Pre-op diagnosis: Colon cancer screening Post-op diagnosis: Polyps in the rectum and transverse colon Surgery: Colonoscopy with polypectomy Medications: Versed 2mg, Fentanyl 50 Mcg IV push Tissue removed: Colon polyps Procedure: After informed consent obtained from patient, conscious sedation was achieved. A digital rectal examination was performed and this was unremarkable. The colonoscope was inserted into the rectum and advanced to the cecum. The appendiceal orifice and the terminal ileum were both identified. The mucosa was examined into details as the colonoscope was slowly pulled out of the patient. The endoscope was retroflexed in the rectum. Patient tolerated the procedure well. Findings Cecum: Normal Ascending colon: Normal Transverse colon: 1 cm sessile, serrated looking polyp removed from the proximal transverse colon with the hot snare Descending colon: Normal Sigmoid colon: Normal Rectum: 5 mm and 7 mm polyps removed from the proximal rectum with a hot snare. Hemorrhoids were also noted Plan: Await pathology. Follow-up colonoscopy in 3 years OPERATION: .
[2018-01-17 17:57] VITALS: BP 104/51
== END 2018-01-17 18:00 | disposition home or self-care (01) ==
LOC: END 15:13
PROVIDERS: ATTEND Internal Medicine Gastroenterology
DX: D12.8 Benign neoplasm of rectum (principal); D12.3 Benign neoplasm of transverse colon; K64.8 Other hemorrhoids; K62.5 Hemorrhage of anus and rectum; I67.89 Other cerebrovascular disease; D64.9 Anemia, unspecified; E78.00 Pure hypercholesterolemia, unspecified; I10 Essential (primary) hypertension; Z88.5 Allergy status to narcotic agent; Z79.899 Other long term (current) drug therapy; Z79.82 Long term (current) use of aspirin; Z79.51 Long term (current) use of inhaled steroids; Z86.73 Personal history of transient ischemic attack (TIA), and cerebral infarction without residual deficits
CPT/HCPCS: 45385; 82962; 88305 ×2; J2250; J3010; J0171; J1610; J2310; J2405; J3490

== ENCOUNTER 2019-05-22 14:15 | Emergency (ER) | payer MEDICARE, BC ==
[2019-05-22 15:10] LABS: ABSOLUTE LYMPHOCYTES (AUTO) 0.7 10^3/uL (0.5-4.7); ABSOLUTE MONOCYTES (AUTO) 0.3 10^3/uL (0.1-1.4); ABSOLUTE NEUT (AUTO) 9.3 10^3/uL (1.7-8.2); BASOPHILS % (AUTO) 0.3 % (0-2); EOSINOPHILS % (AUTO) 0.1 % (0-6); HEMATOCRIT 41.4 % (36.0-47.0); HEMOGLOBIN 13.9 g/dL (12.0-15.5); LYMPHOCYTES % (AUTO) 6.9 % (13-45); MEAN CORPUSCULAR HEMOGLOBIN 27.4 pg (27.0-33.4); MEAN CORPUSCULAR HGB CONC 33.6 g/dL (32.0-36.0); MEAN CORPUSCULAR VOLUME 82 fl (80-97); MONOCYTES % (AUTO) 3.3 % (3-13); PLATELET COUNT 310 10^3/uL (150-450); RED BLOOD COUNT 5.07 10^6/uL (3.72-5.28); RED CELL DISTRIBUTION WIDTH 16.4 % (11.5-14.0); SEGMENTED NEUTROPHILS % (AUTO) 89.4 % (42-78); TOTAL CELLS COUNTED % (AUTO) 100 %; WHITE BLOOD COUNT 10.4 10^3/uL (4.0-10.5)
[2019-05-22 15:17] LABS: ALKALINE PHOSPHATASE 66 U/L (38-126); ASPARTATE AMINO TRANSFERASE 26 U/L (14-36); BILIRUBIN,DIRECT 0.1 mg/dL (0.0-0.4); BILIRUBIN,TOTAL 0.3 mg/dL (0.2-1.3); BLOOD UREA NITROGEN 21 mg/dL (7-20); CALCIUM 7.2 mg/dL (8.4-10.2); CARBON DIOXIDE 27 mmol/L (22-30); CHLORIDE 109 mmol/L (98-107); GLUCOSE 101 mg/dL (75-110); POTASSIUM 3.5 mmol/L (3.6-5.0); TOTAL PROTEIN 6.2 g/dL (6.3-8.2)
[2019-05-22 15:22] LABS: ANION GAP 4 (5-19); CREATINE KINASE < 20 U/L (30-135)
[2019-05-22 15:28] LABS: CREATINE KINASE MB 0.74 ng/mL (<4.55)
--- NOTE | 2019-05-22 15:28 | ER Document Report ---
ED General - General Chief Complaint: Weakness Stated Complaint: WEAKNESS Time Seen by Provider: 05/22/19 15:16 Primary Care Provider: SHARI BESNON MD [Primary Care Provider] - Follow up as needed TRAVEL OUTSIDE OF THE [place] IN LAST 30 DAYS: No - HPI Onset: Other - over the last few days Onset/Duration: Gradual Quality of pain: No pain Severity: Mild Pain Level: Denies Associated symptoms: Shortness of breath, Weakness, Other - leaking around G t ube Exacerbated by: Denies Relieved by: Denies Similar symptoms previously: No Recently seen / treated by doctor: No Notes: 73 year old female with a history of a prior CVA with aphasia and right sided weakness, HTN, and HLD here in the ER for concern of shortness of breath and leakage around her G tube. The patient's G tube is supposed to be changed out every several months but it has not been so in some time and the daughter thinks it is leaking and needs to be replaced. The patient and daughter deny fevers, chills, sweats, nausea, vomiting, chest pain, abdominal pain. - Related Data Allergies/Adverse Reactions: codeine [Codeine] Allergy (Unknown, Verified 01/17/18 15:22) Past Medical History - General Information source: Patient, Relative - Social History Smoking Status: Former Smoker Frequency of alcohol use: None Drug Abuse: None Lives with: Spouse/Significant other Family History: None, COPD, CVA, DM, Hypertension, Malignancy - Past Medical History Cardiac Medical History: Reports: Hx Hypercholesterolemia, Hx Hypertension Denies: Hx Coronary Artery Disease, Hx Heart Attack Pulmonary Medical History: Reports: Hx Pneumonia - aspiration Denies: Hx Asthma, Hx Bronchitis, Hx COPD Neurological Medical History: Reports: Hx Cerebrovascular Accident - RIGHT SIDE WEAKER. Denies: Hx Seizures Renal/ Medical History: Denies: Hx Peritoneal Dialysis GI Medical History: Reports: Hx Gastroesophageal Reflux Disease Musculoskeletal Medical History: Reports Hx Arthritis Psychiatric Medical History: Reports: Hx Depression Past Surgical History: Reports: Hx Hysterectomy, Hx Orthopedic Surgery - back and neck surgery. Denies: Hx Pacemaker - Immunizations Immunizations up to date: No - OFFER FLU AND PNEUMONIA VACCINE Hx Diphtheria, Pertussis, Tetanus Vaccination: Yes Hx Pneumococcal Vaccination: 06/27/09 Review of Systems - Review of Systems Constitutional: Weakness EENT: No symptoms reported Cardiovascular: No symptoms reported Respiratory: Short of breath Gastrointestinal: Other - leakage around her G Tube Genitourinary: No symptoms reported Female Genitourinary: No symptoms reported Musculoskeletal: No symptoms reported Skin: Other - irriatation of skin around G tube and in Vaginal area Hematologic/Lymphatic: No symptoms reported Neurological/Psychological: No symptoms reported -: Yes All other systems reviewed and negative Physical Exam - Notes Notes: GENERAL: Chronically ill-appearing, well-nourished and in no acute distress. HEAD: Atraumatic, normocephalic. EYES: Pupils equal round and reactive to light, extraocular movements intact, sclera anicteric, conjunctiva are normal. ENT: Nares patent, oropharynx clear without exudates. Moist mucous membranes. NECK: Normal range of motion, supple without lymphadenopathy or JVD. LUNGS: Breath sounds clear to auscultation bilaterally and equal. No wheezes rales or rhonchi. HEART: Regular rate and rhythm without murmurs, rubs or gallops. ABDOMEN: Gtube in place and is loose and moving up and down freely with gastric contents leaking around it. Skin irritated around the G tube site. Soft, nontender, normoactive bowel sounds. No guarding, no rebound. No masses appreciated. EXTREMITIES: Normal range of motion, no pitting or edema. No clubbing or cyanosis. NEUROLOGICAL: Patient basically aphasic from her prior stroke, Cranial nerves II through XII grossly intact. Mild right sided weakness. PSYCH: Normal mood, normal affect. SKIN: Skin around G tube irritated. Warm, Dry, normal turgor, no rashes or lesions noted. Course - Re-evaluation Re-evalutation: 05/22/19 19:54 The patient is chronically ill but she does not seem to be acutely sick today. Patient's labs, UA, chest xray, and ekg unremarkable. Patient had a very old G tube with mold growing in it so I changed this out with a new 20F G tube. Patient is safe for outpatient follow up with her PCP. Patient given a script for Nystatin/Triamcinoline for her skin issues (around G tube and in vaginal area). - Laboratory Result Diagrams: 05/22/19 14:31 05/22/19 14:31 Laboratory results interpreted by me: 05/22/19 05/22/19 05/22/19 14:31 14:31 15:46 RDW 16.4 H Lymph % (Auto) 6.9 L Absolute Neuts (auto) 9.3 H Seg Neutrophils % 89.4 H Potassium 3.5 L Chloride 109 H Anion Gap 4 L BUN 21 H Creatinine 0.49 L Calcium 7.2 L Creatine Kinase < 20 L Total Protein 6.2 L Albumin 3.0 L Urine Protein 30 H Urine Ascorbic Acid 40 H - Diagnostic Test Radiology reviewed: Image reviewed, Reports reviewed - EKG Interpretation by Me EKG shows normal: Sinus rhythm, [place], Intervals, QRS Complexes Rate: Normal Rhythm: NSR Additional EKG results interpreted by me: 05/22/19 19:49 T wave inversions in V1,V2,V6 Procedures - Additional Procedures G Tube Replacement Additional Procedures: Other Notes: 05/22/19 20:05 Patient's Old 20F G tube was removed after the balloon was deflated. I then placed a new 20F G tube and inflated the balloon with 6cc of NS. Discharge - Discharge Clinical Impression: Gastrostomy complication, Dermatitis Condition: Stable Disposition: HOME, SELF-CARE Additional Instructions: Follow up with your primary care doctor. Use Nystatin Ointment as needed. Tell your doctors you had your G tube changed out today. Prescriptions: Nystatin/Triamcin [Mycolog-II Cream 15 gm] 1 applic TP BID #1 tube Referrals: SHARI BENSON MD [Primary Care Provider] - Follow up as needed
[2019-05-22 15:31] LABS: TROPONIN I < 0.012 ng/mL
[2019-05-22 16:13] LABS: APPEARANCE,URINE SLIGHTLY-CLOUDY; BILIRUBIN,URINE NEGATIVE (NEGATIVE); COLOR,URINE YELLOW; GLUCOSE, URINE NEGATIVE (NEGATIVE); KETONES,URINE NEGATIVE (NEGATIVE); LEUKOCYTE ESTERASE,URINE NEGATIVE (NEGATIVE); NITRITE,URINE NEGATIVE (NEGATIVE); PROTEIN,URINE 30 mg/dL (NEGATIVE); URINE SPECIFIC GRAVITY 1.021; UROBILINOGEN,URINE NEGATIVE mg/dL (<2.0)
[2019-05-22 16:29] LABS: A TYPE INFLUENZA AG NEGATIVE (NEGATIVE); B INFLUENZA AG NEGATIVE (NEGATIVE)
--- NOTE | 2019-05-22 16:44 | RADIOLOGY REPORT (SQ) ---
EXAM DESCRIPTION: CHEST 2 VIEWS COMPLETED DATE/TIME: 05/22/2019 3:22 pm REASON FOR STUDY: eval for pneumonia COMPARISON: 07/06/2017 EXAM PARAMETERS: NUMBER OF VIEWS: two views TECHNIQUE: Digital Frontal and Lateral radiographic views of the chest acquired. RADIATION DOSE: NA LIMITATIONS: none FINDINGS: LUNGS AND PLEURA: Lungs are hyperinflated. No focal consolidation or pleural effusion. N o pneumothorax. MEDIASTINUM AND HILAR STRUCTURES: No masses or contour abnormalities. HEART AND VASCULAR STRUCTURES: Heart normal size. No evidence for failure. BONES: No acute findings. HARDWARE: None in the chest. OTHER: No other significant finding. IMPRESSION: No acute cardiopulmonary disease. Hyperinflated lungs which can be seen with obstructiv e lung disease. TECHNICAL DOCUMENTATION: JOB ID: [id number] [employer] All Rights Reserved Reading location - IP/workstation name: [email or web address]
--- NOTE | 2019-05-22 21:34 | EKG REPORT ---
SEVERITY:- ABNORMAL ECG - SINUS OR ECTOPIC ATRIAL RHYTHM CONSIDER LEFT VENTRICULAR HYPERTROPHY : Confirmed by: Maria Eugenia Lux MD 22-May-2019 21:34:14
== END 2019-05-22 21:31 | disposition home or self-care (01) ==
LOC: ER 14:15
DX: L30.9 Dermatitis, unspecified (principal); K94.29 Other complications of gastrostomy; R53.1 Weakness; R06.02 Shortness of breath; I69.920 Aphasia following unspecified cerebrovascular disease; I10 Essential (primary) hypertension; E78.00 Pure hypercholesterolemia, unspecified; Z88.6 Allergy status to analgesic agent; Z90.710 Acquired absence of both cervix and uterus
CPT/HCPCS: 36415; 71046; 80053; 81001; 82550; 82553; 83735; 84484; 85025; 87070; 87804; 87880; 93005; 93010; 99285

== ENCOUNTER 2019-08-04 11:53 | Inpatient (IN) | payer MEDICARE, BC ==
--- NOTE | 2019-08-04 12:23 | ER Document Report ---
ED General - General Chief Complaint: Altered Mental Status Stated Complaint: FAILURE TO THRIVE/CONSTIPATION Time Seen by Provider: 08/04/19 11:55 Primary Care Provider: SHARI BENSON MD [Primary Care Provider] - Follow up as needed Notes: HPI: 73-year-old female that comes in from EMS secondary to some "failure to thrive". Patient does not talk at baseline. EMS had limited story. I was able to call the patient's daughter Valencia at [phone]. She states that the patient has a history of a stroke with right-sided weakness. She did have a fall a few weeks ago and got admitted to an outside hospital secondary to a right hip and pelvic fracture. This was operated on. She is developed pneumonia and pulmonary embolism at that time and is on Eliquis. She has not spoke for an excessive period of time. Patient was supposedly "staring into space" being even less responsive than normal and was brought here for further evaluation. No recent fevers, vomiting, or diarrhea. Patient is on baseline oxygen. Patient has been taking her Eliquis. ROS: See HPI Unable to be obtained secondary to patient's condition Reviewed vital signs and nursing note as charted by RN. PHYSICAL EXAM: CONSTITUTIONAL: Patient is alert but does not answer which is baseline for the patient HEAD: Normocephalic; atraumatic EYES: PERRL; Conjunctivae clear, sclerae non-icteric ENT: Normal nose; no rhinorrhea; nasal cannula is in place; moist mucous membranes; pharynx without lesions noted NECK: Supple without meningismus; non-tender; no cervical lymphadenopathy, no masses CARD: Regular rate and rhythm; no murmurs; symmetric distal pulses RESP: Normal chest excursion without splinting or tachypnea; breath sounds clear and equal bilaterally; no wheezes, no rhonchi, no rales ABD/GI: Normal bowel sounds; non-distended; soft, tube in place; non-tender; no palpable organomegaly or masses : Patient does have some stool in the rectum BACK: The back appears normal and is non-tender to palpation EXT: Surgical scar to her right hip with no surrounding erythema or swelling. No lower extremity edema SKIN: Minimal skin breakdown to the buttocks region NEURO: CN 2-12 intact; no baseline movement to the right upper or lower extremity TRAVEL OUTSIDE OF THE [place] IN LAST 30 DAYS: No - Related Data Allergies/Adverse Reactions: codeine [Codeine] Allergy (Unknown, Verified 01/17/18 15:22) Past Medical History - Social History Smoking Status: Unknown if Ever Smoked Family History: None, COPD, CVA, DM, Hypertension, Malignancy Patient has homicidal ideation: No - Past Medical History Cardiac Medical History: Reports: Hx Hypercholesterolemia, Hx Hypertension Denies: Hx Coronary Artery Disease, Hx Heart Attack Pulmonary Medical History: Reports: Hx Pneumonia - aspiration Denies: Hx Asthma, Hx Bronchitis, Hx COPD Neurological Medical History: Reports: Hx Cerebrovascular Accident - RIGHT SIDE WEAKER. Denies: Hx Seizures Renal/ Medical History: Denies: Hx Peritoneal Dialysis GI Medical History: Reports: Hx Gastroesophageal Reflux Disease Musculoskeletal Medical History: Reports Hx Arthritis Psychiatric Medical History: Reports: Hx Depression Past Surgical History: Reports: Hx Hysterectomy, Hx Orthopedic Surgery - back and neck surgery. Denies: Hx Pacemaker - Immunizations Immunizations up to date: No - OFFER FLU AND PNEUMONIA VACCINE Hx Diphtheria, Pertussis, Tetanus Vaccination: Yes Hx Pneumococcal Vaccination: 06/27/09 Physical Exam - Vital signs Vitals: Temp Pulse Resp BP Pulse Ox 98.3 F 84 16 130/66 H 95 08/04/19 12:14 08/04/19 12:14 08/04/19 12:14 08/04/19 12:14 08/04/19 12:14 Course - Re-evaluation Re-evalutation: Given the history and physical examination, we will perform a CT scan of the head, basic labs, catheterized urine analysis, EKG, and reassess. Patient appears to be baseline verbal with movement of the left upper and lower extremity. 08/04/19 12:17 EKG shows heart rate of 83, normal sinus rhythm, PACs present, inverted T waves I and AVL, V2 through V6 with minimal ST depression in V4 and V5. Previous EKG on May 22, 2019 does not show the inverted T waves. 08/04/19 14:20 White blood cell count as recorded. Urine analysis as recorded. Lactic acid and blood cultures have been ordered. I provided a liter of fluid as well as antibiotics. CT scan of the head shows no obvious intracranial bleed. Given that I have spoken to the patient's daughter, with history as recorded already on Eliquis, not tachycardic or hypoxic, I do not believe CT chest imaging is necessary at this moment. I will perform a portable x-ray and reassess. - Vital Signs Vital signs: Temp Pulse Resp BP Pulse Ox 98.3 F 84 16 130/66 H 95 08/04/19 12:15 08/04/19 12:14 08/04/19 12:14 08/04/19 12:14 08/04/19 12:14 - Laboratory Result Diagrams: 08/04/19 12:11 08/04/19 12:11 Laboratory results interpreted by me: 08/04/19 08/04/19 08/04/19 12:11 12:11 12:32 WBC 12.7 H Hgb 10.0 L Hct 29.9 L MCV 78 L MCH 26.0 L RDW 17.3 H Absolute Neuts (auto) 10.1 H Seg Neutrophils % 79.0 H Sodium 135.5 L BUN 24 H Glucose 116 H AST 39 H Alkaline Phosphatase 136 H Albumin 3.1 L Urine Protein 30 H Ur Leukocyte Esterase LARGE H Urine Ascorbic Acid 40 H Discharge - Discharge Clinical Impression: Altered mental status Qualifiers: Altered mental status type: unspecified Qualified Code(s): R41.82 - Altered mental status, unspecified Urinary tract infection Qualifiers: Urinary tract infection type: site unspecified Hematuria presence: with hematuria Qualified Code(s): N39.0 - Urinary tract infection, site not specified Condition: Fair Disposition: ADMITTED INPATIENT Admitting Provider: Sigrid (Hospitalist) Unit Admitted: Medical Floor Referrals: SHARI BENSON MD [Primary Care Provider] - Follow up as needed
[2019-08-04 12:26] LABS: ABSOLUTE BASOPHILS # (AUTO) 0.1 10^3/uL (0.0-0.2); ABSOLUTE LYMPHOCYTES (AUTO) 1.7 10^3/uL (0.5-4.7); ABSOLUTE MONOCYTES (AUTO) 0.9 10^3/uL (0.1-1.4); ABSOLUTE NEUT (AUTO) 10.1 10^3/uL (1.7-8.2); BASOPHILS % (AUTO) 0.6 % (0-2); EOSINOPHILS % (AUTO) 0.1 % (0-6); HEMATOCRIT 29.9 % (36.0-47.0); MEAN CORPUSCULAR HGB CONC 33.5 g/dL (32.0-36.0); MEAN CORPUSCULAR VOLUME 78 fl (80-97); MONOCYTES % (AUTO) 7.3 % (3-13); PLATELET COUNT 383 10^3/uL (150-450); RED BLOOD COUNT 3.85 10^6/uL (3.72-5.28); RED CELL DISTRIBUTION WIDTH 17.3 % (11.5-14.0); TOTAL CELLS COUNTED % (AUTO) 100 %; WHITE BLOOD COUNT 12.7 10^3/uL (4.0-10.5)
[2019-08-04 12:44] LABS: ALBUMIN 3.1 g/dL (3.5-5.0); ALKALINE PHOSPHATASE 136 U/L (38-126); ANION GAP 8 (5-19); ASPARTATE AMINO TRANSFERASE 39 U/L (14-36); BILIRUBIN,TOTAL 0.4 mg/dL (0.2-1.3); BLOOD UREA NITROGEN 24 mg/dL (7-20); CALCIUM 9.1 mg/dL (8.4-10.2); CARBON DIOXIDE 30 mmol/L (22-30); CHLORIDE 98 mmol/L (98-107); GLUCOSE 116 mg/dL (75-110); POTASSIUM 4.7 mmol/L (3.6-5.0); TOTAL PROTEIN 7.6 g/dL (6.3-8.2)
[2019-08-04 13:09] LABS: APPEARANCE,URINE CLOUDY; BILIRUBIN,URINE NEGATIVE (NEGATIVE); COLOR,URINE YELLOW; GLUCOSE, URINE NEGATIVE (NEGATIVE); KETONES,URINE NEGATIVE (NEGATIVE); LEUKOCYTE ESTERASE,URINE LARGE (NEGATIVE); NITRITE,URINE NEGATIVE (NEGATIVE); PROTEIN,URINE 30 mg/dL (NEGATIVE); UROBILINOGEN,URINE NEGATIVE mg/dL (<2.0)
--- NOTE | 2019-08-04 13:15 | RADIOLOGY REPORT (SQ) ---
EXAM DESCRIPTION: CT HEAD WITHOUT IMAGES COMPLETED DATE/TIME: 08/04/2019 12:01 pm REASON FOR STUDY: 10; ams COMPARISON: None. TECHNIQUE: Axial images acquired through the brain without intravenous contrast. Images reviewed wi th bone, brain and subdural windows. Additional sagittal and coronal reconstructions were generated. Images stored on PACS. All CT scanners at this facility use dose modulation, iterative reconstruction, and/or weight based d osing when appropriate to reduce radiation dose to as low as reasonably achievable (ALARA). [facility]: Dose Right [facility]: CareDose [facility]: Dose Right [facility]: Teradose 4D [facility]: Smart [employer] RADIATION DOSE: CT Rad equipment meets quality standard of care and radiation dose reduction techniq ues were employed. CTDIvol: 53.2 mGy. DLP: 964 mGy-cm. mGy. LIMITATIONS: None. FINDINGS: VENTRICLES: Normal size and contour. CEREBRUM: No masses. No hemorrhage. No midline shift. No evidence for acute infarction. Normal gra y-white matter differentiation. Moderate diffuse periventricular, deep, and subcortical white matter hypodense attenuation consistent with moderate chronic small vessel ischemic change. There is intra cranial atherosclerosis. CEREBELLUM: No masses. No hemorrhage. No alteration of density. No evidence for acute infarction. EXTRAAXIAL SPACES: No fluid collections. No masses. ORBITS AND GLOBE: No intra- or extraconal masses. Normal contour of globe without masses. CALVARIUM: No fracture. PARANASAL SINUSES: No fluid or mucosal thickening. SOFT TISSUES: No mass or hematoma. OTHER: No other significant finding. IMPRESSION: No acute intracranial hemorrhage, mass, or evidence of acute territorial infarct. Moder ate chronic small vessel ischemic change and intracranial atherosclerosis. EVIDENCE OF ACUTE STROKE: NO. COMMENT: Quality ID # [id number]: Final reports with documentation of one or more dose reduction techniques (e.g., Automated exposure control, adjustment of the mA and/or kV according to patient size, use of iterative reconstruction technique) TECHNICAL DOCUMENTATION: JOB ID: [id number] [employer]- All Rights Reserved Reading location - IP/workstation name: [email or web address]
[2019-08-04] MEDS ORDERED: CEFTRIAXONE 1 GM/D5W RTU 1 GM/50 ML RTUPB IV ONE (13:16)
[2019-08-04] MEDS ORDERED: NORMAL SALINE 1000 ML 1,000 ML IV ONE (13:37)
[2019-08-04 14:37] LABS: PROTHROMBIN TIME 22.1 SEC (11.4-15.4)
[2019-08-04 14:38] LABS: PARTIAL THROMBOPLASTIN TIME 43.9 SEC (23.5-35.8)
--- NOTE | 2019-08-04 14:49 | RADIOLOGY REPORT (SQ) ---
EXAM DESCRIPTION: CHEST SINGLE VIEW IMAGES COMPLETED DATE/TIME: 08/04/2019 2:28 pm REASON FOR STUDY: 10; ams COMPARISON: Chest films 05/22/2019, 07/06/2017 EXAM PARAMETERS: NUMBER OF VIEWS: One view. TECHNIQUE: Single frontal radiographic view of the chest acquired. RADIATION DOSE: NA LIMITATIONS: None. FINDINGS: LUNGS AND PLEURA: Airspace disease medial right lung base atelectasis versus pneumonia. R emainder of the lungs are clear. No pleural effusion or pneumothorax. MEDIASTINUM AND HILAR STRUCTURES: No masses. Contour normal. HEART AND VASCULAR STRUCTURES: Heart normal in size. Normal vasculature. BONES: No acute findings. HARDWARE: None in the chest. OTHER: No other significant finding. IMPRESSION: Right medial basilar airspace disease. TECHNICAL DOCUMENTATION: JOB ID: [id number] 2010 [employer]- All Rights Reserved Reading location - IP/workstation name: [email or web address]
[2019-08-04] MEDS ORDERED: ACETAMINOPHEN 325 MG TABLET PO PRN (15:21)
[2019-08-04] MEDS ORDERED: ONDANSETRON HCL INJ/PF 4 MG/2 ML SDV IV PRN (15:21)
[2019-08-04] MEDS ORDERED: ONDANSETRON 4 MG TAB.RAPDIS PO PRN (15:21)
[2019-08-04] MEDS ORDERED: VANCOMYCIN HCL 0 MG in DEXTROSE 5%-WATER 250 ML IV NR (15:30)
--- NOTE | 2019-08-04 15:50 | PDOC H&P ---
History of Present Illness Admission Date/PCP: 08/04/19 14:48 SHARI BENSON MD History of Present Illness: ARIANA MCCARTHY is a 73 year old female comes to the emergency room by EMS for altered mental status, hypoxia. Patient is completely a phasic from a CVA she had many years ago.. Story is gleaned through the chart and by speaking to her daughter, Erica. Evidently patient was just released from rehab about 1 week ago after fracturing her hip 1 month ago.. Patient had surgery for her hip fracture in [place]. Patient was treated for a UTI while in rehab.. Right after patient fractured her hip she also developed pulmonary embolisms and she is currently on Eliquis. In the last several days patient she has continued to deteriorate as far as her level of consciousness as well as some sort of visual hallucination.. Her daughter thinks she may in fact have another UTI and/or be septic. Daughter wants her to be a full code for now.. Patient will be admitted to the hospital for IV fluids and IV antibiotics as well as serial labs. Past Medical History Cardiac Medical History: Reports: Hyperlipidema, Hypertension Denies: Coronary Artery Disease, Myocardial Infarction Pulmonary Medical History: Reports: Pneumonia - aspiration Denies: Asthma, Bronchitis, Chronic Obstructive Pulmonary Disease (COPD) Neurological Medical History: Denies: Seizures GI Medical History: Reports: Gastroesophageal Reflux Disease Musculoskeltal Medical History: Reports: Arthritis Psychiatric Medical History: Reports: Depression Hematology: Denies: Anemia Past Surgical History Past Surgical History: Reports: Hysterectomy, Orthopedic Surgery - back and neck surgery Denies: Pacemaker Social History Smoking Status: Unknown if Ever Smoked Frequency of Alcohol Use: None Hx Recreational Drug Use: No Hx Prescription Drug Abuse: No - Advance Directive Resuscitation Status: Full Code Family History Family History: None, COPD, CVA, DM, Hypertension, Malignancy Parental Family History Reviewed: No Children Family History Reviewed: No Sibling(s) Family History Reviewed.: No Medication/Allergy Home Medications: Lisinopril [Prinivil 20 mg Tablet] 20 mg PO DAILY 09/23/11 Sertraline HCl [Zoloft 50 mg Tablet] 50 mg PO DAILY 09/23/11 Metoprolol Succinate [Toprol Xl 50 mg Tab.sr] 50 mg PO Q12 #60 tab.sr.24h 07/09/17 Apixaban [Eliquis 5 mg Tablet] 5 mg PO BID 08/04/19 Atropine Sulfate [Atropine 1% Oph Soln 5 ml] 2 drop SL TID 08/04/19 Lovastatin [Altoprev] 20 mg PO QPM 08/04/19 Simvastatin [Zocor 10 mg Tablet] 10 mg PO DAILY 08/04/19 Allergies/Adverse Reactions: codeine [Codeine] Allergy (Unknown, Verified 01/17/18 15:22) Review of Systems ROS unobtainable: Due to mental status Physical Exam Vital Signs: Temp Pulse Resp BP Pulse Ox 98.1 F 84 21 H 132/57 H 95 08/04/19 14:59 08/04/19 12:14 08/04/19 14:01 08/04/19 14:00 08/04/19 14:01 Intake & Output 08/03/19 08/04/19 08/05/19 06:59 06:59 06:59 Intake Total 1050 Balance 1050 Weight 49 kg General appearance: PRESENT: mild distress, thin, other - Complete expressive aphasia Respiratory exam: PRESENT: clear to auscultation landon. ABSENT: rales, rhonchi, wheezes Cardiovascular exam: PRESENT: systolic murmur Neurological exam: PRESENT: altered, other - Patient appears to have a right hemiplegia secondary to a CVA previous. Patient will follow commands with her left hand she will hold up one finger or 2 fingers on command she will close her eyes on command she definitely has no trouble with the receptive part of comprehension Psychiatric exam: PRESENT: appropriate affect, normal mood. ABSENT: homicidal ideation, suicidal ideation Results Laboratory Results: 08/04/19 12:11 08/04/19 12:11 08/04/19 08/04/19 08/04/19 12:11 12:11 12:11 WBC 12.7 H RBC 3.85 Hgb 10.0 L Hct 29.9 L MCV 78 L MCH 26.0 L MCHC 33.5 RDW 17.3 H Plt Count 383 Seg Neutrophils % 79.0 H Sodium 135.5 L Potassium 4.7 Chloride 98 Carbon Dioxide 30 Anion Gap 8 BUN 24 H Creatinine 0.55 Est GFR ( Amer) > 60 Glucose 116 H Lactic Acid 1.0 Calcium 9.1 Total Bilirubin 0.4 AST 39 H Alkaline Phosphatase 136 H Total Protein 7.6 Albumin 3.1 L Urine Color Urine Appearance Urine pH Ur Specific [place] Urine Protein Urine Glucose (UA) Urine Ketones Urine Blood Urine Nitrite Ur Leukocyte Esterase Urine WBC (Auto) Urine RBC (Auto) 08/04/19 12:32 WBC RBC Hgb Hct MCV MCH MCHC RDW Plt Count Seg Neutrophils % Sodium Potassium Chloride Carbon Dioxide Anion Gap BUN Creatinine Est GFR ( Amer) Glucose Lactic Acid Calcium Total Bilirubin AST Alkaline Phosphatase Total Protein Albumin Urine Color YELLOW Urine Appearance CLOUDY Urine pH 6.0 Ur Specific [place] 1.020 Urine Protein 30 H Urine Glucose (UA) NEGATIVE Urine Ketones NEGATIVE Urine Blood NEGATIVE Urine Nitrite NEGATIVE Ur Leukocyte Esterase LARGE H Urine WBC (Auto) 129 Urine RBC (Auto) 23 08/04/19 12:11 Troponin I 0.045 Impressions: Head CT 08/04/19 12:16 IMPRESSION: No acute intracranial hemorrhage, mass, or evidence of acute territorial infarct. Moderate chronic small vessel ischemic change and intracranial atherosclerosis. EVIDENCE OF ACUTE STROKE: NO. Chest X-Ray 08/04/19 14:13 IMPRESSION: Right medial basilar airspace disease. Assessment and Plan - Diagnosis (1) Altered mental status Qualifiers: Altered mental status type: unspecified Qualified Code(s): R41.82 - Altered mental status, unspecified Is this a current diagnosis for this admission?: Yes (2) Urinary tract infection Qualifiers: Urinary tract infection type: site unspecified Hematuria presence: with hematuria Qualified Code(s): N39.0 - Urinary tract infection, site not specified; R31.9 - Hematuria, unspecified Is this a current diagnosis for this admission?: Yes (3) Elevated brain natriuretic peptide (BNP) level Is this a current diagnosis for this admission?: Yes (4) HTN (hypertension) Qualifiers: Is this a current diagnosis for this admission?: Yes (5) History of stroke Is this a current diagnosis for this admission?: Yes (6) Pneumonia Is this a current diagnosis for this admission?: Yes - Plan Summary Summary: Patient will be admitted to hospital for IV fluids IV antibiotics urine and blood cultures. She appears to have some ischemic changes on her EKG however I have spoken to the daughter and we are not going to treat her troponins or do any further diagnostic cardiac studies Her daughter would like her to be full code until further notice - Time Time Spent with patient: 35 or more minutes
[2019-08-04 16:38] LABS: CREATINE KINASE MB 1.76 ng/mL (<4.55)
--- NOTE | 2019-08-04 16:51 | EKG REPORT ---
SEVERITY:- ABNORMAL ECG - SINUS RHYTHM ATRIAL PREMATURE COMPLEX ABNORMAL T, PROBABLE ISCHEMIA, ANT-LAT LEADS , THIS IS NEW SINCE 05/22/19 EKG : Confirmed by: Monster Thomsa MD 04-Aug-2019 16:50:34
[2019-08-04] MEDS ORDERED: DOCUSATE SODIUM 100 MG CAPSULE PO SCH (18:00)
[2019-08-04] MEDS ORDERED: APIXABAN 5 MG TABLET PO SCH (18:00)
[2019-08-04 19:23] LABS: CREATINE KINASE MB 2.1 ng/mL (<4.55); TROPONIN I 0.041 ng/mL
[2019-08-04] MEDS ORDERED: VANCOMYCIN HCL INJ 1000 MG VIAL IV PRN (21:24)
[2019-08-04] MEDS ORDERED: VANCOMYCIN HCL 1,250 MG in DEXTROSE 5%-WATER 250 ML IV ONE (22:00)
[2019-08-04] MEDS ORDERED: METOPROLOL SUCCINATE 50 MG TAB.SR.24H PO SCH (22:00)
[2019-08-04] MEDS ORDERED: ATORVASTATIN CALCIUM 10 MG TABLET PO SCH (22:00)
[2019-08-04] MEDS: ATROPINE SULFATE 1% OPH SOLN 5 ML BOTTLE SL SCH (23:02)
[2019-08-04] MEDS: FAMOTIDINE INJ/PF 20 MG/2 ML SDV IV SCH (23:25)
[2019-08-04] MEDS: NORMAL SALINE 1000 ML 1,000 ML IV PRN (23:25)
[2019-08-04] MEDS ORDERED: ONDANSETRON 4 MG TAB.RAPDIS PEG PRN (23:30)
[2019-08-05] MEDS ORDERED: METOPROLOL TARTRATE 50 MG TABLET PEG ONE (00:30)
[2019-08-05] MEDS: ACETAMINOPHEN 325 MG TABLET PEG PRN ×2 (00:33→22:59)
[2019-08-05 01:25] LABS: CREATINE KINASE MB 2.66 ng/mL (<4.55)
[2019-08-05 01:28] LABS: TROPONIN I 0.041 ng/mL
[2019-08-05 06:25] LABS: ABSOLUTE BASOPHILS # (AUTO) 0.1 10^3/uL (0.0-0.2); ABSOLUTE LYMPHOCYTES (AUTO) 1.4 10^3/uL (0.5-4.7); ABSOLUTE MONOCYTES (AUTO) 0.6 10^3/uL (0.1-1.4); ABSOLUTE NEUT (AUTO) 8.3 10^3/uL (1.7-8.2); BASOPHILS % (AUTO) 0.7 % (0-2); EOSINOPHILS % (AUTO) 0.2 % (0-6); HEMATOCRIT 28.1 % (36.0-47.0); HEMOGLOBIN 9.2 g/dL (12.0-15.5); LYMPHOCYTES % (AUTO) 13.3 % (13-45); MEAN CORPUSCULAR HEMOGLOBIN 25.5 pg (27.0-33.4); MEAN CORPUSCULAR HGB CONC 32.7 g/dL (32.0-36.0); MEAN CORPUSCULAR VOLUME 78 fl (80-97); MONOCYTES % (AUTO) 5.6 % (3-13); PLATELET COUNT 348 10^3/uL (150-450); RED CELL DISTRIBUTION WIDTH 16.9 % (11.5-14.0); SEGMENTED NEUTROPHILS % (AUTO) 80.2 % (42-78); TOTAL CELLS COUNTED % (AUTO) 100 %; WHITE BLOOD COUNT 10.3 10^3/uL (4.0-10.5)
[2019-08-05 06:48] LABS: ANION GAP 8 (5-19); BLOOD UREA NITROGEN 21 mg/dL (7-20); CALCIUM 8.8 mg/dL (8.4-10.2); CARBON DIOXIDE 25 mmol/L (22-30); CHLORIDE 104 mmol/L (98-107); GLUCOSE 106 mg/dL (75-110); POTASSIUM 4.2 mmol/L (3.6-5.0)
--- NOTE | 2019-08-05 09:16 | EKG REPORT ---
SEVERITY:- ABNORMAL ECG - SINUS RHYTHM PROBABLE LVH WITH SECONDARY REPOL ABNRM ABNORMAL T, PROBABLE ISCHEMIA, ANT-LAT LEADS, CLINICAL CORRELATION NEEDED, : Confirmed by: Monster Thomas MD 05-Aug-2019 09:16:06
[2019-08-05] MEDS ORDERED: (PENDING PHARMACY ID) (Lisinopril [Prinivil 20 Mg Tablet] 20 MG) PO SCH (10:00)
[2019-08-05] MEDS: SERTRALINE HCL 50 MG TABLET PEG SCH (10:11)
[2019-08-05] MEDS: METOPROLOL TARTRATE 50 MG TABLET PEG SCH ×2 (10:11→23:00)
[2019-08-05] MEDS: ATROPINE SULFATE 1% OPH SOLN 5 ML BOTTLE SL SCH ×3 (10:11→17:45)
[2019-08-05] MEDS: SIMVASTATIN 10 MG TABLET PEG SCH (10:11)
[2019-08-05] MEDS: LISINOPRIL 10 MG TABLET PEG SCH (10:11)
[2019-08-05] MEDS: DOCUSATE SODIUM 100 MG/10 ML UDC PEG SCH ×2 (10:11→17:45)
[2019-08-05] MEDS: FAMOTIDINE INJ/PF 20 MG/2 ML SDV IV SCH ×2 (10:11→23:00)
[2019-08-05] MEDS: APIXABAN 5 MG TABLET PEG SCH ×2 (10:11→17:45)
[2019-08-05] MEDS: CEFTRIAXONE 1 GM/D5W RTU 1 GM/50 ML RTUPB IV SCH (10:12)
--- NOTE | 2019-08-05 10:38 | PDOC PROGRESS REPORT ---
Subjective Progress Note for:: 08/05/19 Reason For Visit: STATUS POST CVA,PROBABLE UTI,PNEUMONIA,STATUS POST 08/05/2019 Patient was admitted yesterday for apparent urinary tract infection, possible pneumonia, altered mental status, elevated BNP, hypertension, status post fixed CVA deficits, sacral decubitus Physical Exam Vital Signs: Temp Pulse Resp BP Pulse Ox 98.1 F 77 16 144/62 H 97 08/05/19 07:15 08/05/19 07:15 08/05/19 07:15 08/05/19 07:15 08/05/19 07:15 Intake & Output 08/04/19 08/05/19 08/06/19 06:59 06:59 06:59 Intake Total 1300 Balance 1300 Weight 47.9 kg General appearance: PRESENT: no acute distress Respiratory exam: PRESENT: clear to auscultation landon. ABSENT: rales, rhonchi, wheezes Cardiovascular exam: PRESENT: RRR. ABSENT: diastolic murmur, rubs, systolic murmur Neurological exam: PRESENT: alert, awake, oriented to person, oriented to place, oriented to time, oriented to situation, CN II-XII grossly intact, aphasic, other - She has a fixed expressive aphasia secondary to previous CVA. Does follow commands however, best as possible with her weakness. ABSENT: motor sensory deficit Psychiatric exam: PRESENT: appropriate affect, normal mood. ABSENT: homicidal ideation, suicidal ideation Results Laboratory Results: 08/05/19 05:13 08/05/19 05:13 08/04/19 08/04/19 08/04/19 12:11 12:11 12:11 WBC 12.7 H RBC 3.85 Hgb 10.0 L Hct 29.9 L MCV 78 L MCH 26.0 L MCHC 33.5 RDW 17.3 H Plt Count 383 Seg Neutrophils % 79.0 H Sodium 135.5 L Potassium 4.7 Chloride 98 Carbon Dioxide 30 Anion Gap 8 BUN 24 H Creatinine 0.55 Est GFR ( Amer) > 60 Glucose 116 H Lactic Acid 1.0 Calcium 9.1 Magnesium Total Bilirubin 0.4 AST 39 H Alkaline Phosphatase 136 H Total Protein 7.6 Albumin 3.1 L Urine Color Urine Appearance Urine pH Ur Specific [place] Urine Protein Urine Glucose (UA) Urine Ketones Urine Blood Urine Nitrite Ur Leukocyte Esterase Urine WBC (Auto) Urine RBC (Auto) 08/04/19 08/05/19 08/05/19 12:32 05:13 05:13 WBC 10.3 RBC 3.60 L Hgb 9.2 L Hct 28.1 L MCV 78 L MCH 25.5 L MCHC 32.7 RDW 16.9 H Plt Count 348 Seg Neutrophils % 80.2 H Sodium 136.8 L Potassium 4.2 Chloride 104 Carbon Dioxide 25 Anion Gap 8 BUN 21 H Creatinine 0.34 L Est GFR ( Amer) > 60 Glucose 106 Lactic Acid Calcium 8.8 Magnesium 2.0 Total Bilirubin AST Alkaline Phosphatase Total Protein Albumin Urine Color YELLOW Urine Appearance CLOUDY Urine pH 6.0 Ur Specific [place] 1.020 Urine Protein 30 H Urine Glucose (UA) NEGATIVE Urine Ketones NEGATIVE Urine Blood NEGATIVE Urine Nitrite NEGATIVE Ur Leukocyte Esterase LARGE H Urine WBC (Auto) 129 Urine RBC (Auto) 23 08/04/19 08/04/19 08/04/19 12:11 12:11 18:19 CK-MB (CK-2) 1.76 2.10 Troponin I 0.045 Cancelled 0.041 NT-Pro-B Natriuret Pep 1950 H 08/05/19 00:46 CK-MB (CK-2) 2.66 Troponin I 0.041 NT-Pro-B Natriuret Pep Impressions: Head CT 08/04/19 12:16 IMPRESSION: No acute intracranial hemorrhage, mass, or evidence of acute territorial infarct. Moderate chronic small vessel ischemic change and intracranial atherosclerosis. EVIDENCE OF ACUTE STROKE: NO. Chest X-Ray 08/04/19 14:13 IMPRESSION: Right medial basilar airspace disease. Assessment and Plan - Diagnosis (1) Altered mental status Qualifiers: Altered mental status type: unspecified Qualified Code(s): R41.82 - Altered mental status, unspecified Is this a current diagnosis for this admission?: Yes (2) Urinary tract infection Qualifiers: Urinary tract infection type: site unspecified Hematuria presence: with hematuria Qualified Code(s): N39.0 - Urinary tract infection, site not specified; R31.9 - Hematuria, unspecified Is this a current diagnosis for this admission?: Yes (3) Elevated brain natriuretic peptide (BNP) level Is this a current diagnosis for this admission?: Yes (4) HTN (hypertension) Qualifiers: Is this a current diagnosis for this admission?: Yes (5) History of stroke Is this a current diagnosis for this admission?: Yes (6) Pneumonia Is this a current diagnosis for this admission?: Yes (7) Sacral decubitus ulcer Is this a current diagnosis for this admission?: Yes - Plan Summary Summary: Patient will be admitted to hospital for IV fluids IV antibiotics urine and blood cultures. She appears to have some ischemic changes on her EKG however I have spoken to the daughter and we are not going to treat her troponins or do any further diagnostic cardiac studies Her daughter would like her to be full code until further notice 08/05/2019 Temperature 97.4 pulse 75 blood pressure 145/65 O2 sat 100% on 1 L CBC is stable, white count is actually down from 12.7-10.3, BNP is 1950, cultures are pending today. Patient was on vancomycin and have added IV Rocephin. I have examined her sacral decubitus today with nursing. It does not need surgical attention. Nursing is going to talk to the daughter and find about her feeding through her G-tube Patient appears to be stable. Patient does follow commands best as she possibly can status post fixed deficit CVA - Time Time Spent with patient: 25-34 minutes
[2019-08-05] MEDS: NORMAL SALINE 1000 ML 1,000 ML IV PRN (17:43)
[2019-08-05] MEDS ORDERED: VANCOMYCIN HCL 750 MG in DEXTROSE 5%-WATER 250 ML IV SCH (22:00)
[2019-08-05] MEDS ORDERED: ATORVASTATIN CALCIUM 10 MG TABLET PEG SCH (22:00)
[2019-08-06] MEDS ORDERED: ONDANSETRON HCL INJ/PF 4 MG/2 ML SDV IV PRN (08:30)
--- NOTE | 2019-08-06 09:16 | CDI QUERY ---
CDI Query CDI Review: Dear Provider, Please specify if possible the AMS noted in progress notes: ACUTE METABOLIC ENCEPHALOPATHY? ACUTE TOXIC ENCEPHALOPATHY? EXPRESSIVE APHASIA? RECEPTIVE APHASIA? ACUTE CONFUSIONAL STATE? Clinical data: INFECTION- PNA UTI OLD CVA W/ DEFICIT DRUG THERAPY
[2019-08-06] MEDS: SERTRALINE HCL 50 MG TABLET PEG SCH (09:39)
[2019-08-06] MEDS: LISINOPRIL 10 MG TABLET PEG SCH (09:39)
[2019-08-06] MEDS: METOPROLOL TARTRATE 50 MG TABLET PEG SCH ×2 (09:39→22:25)
[2019-08-06] MEDS: DOCUSATE SODIUM 100 MG/10 ML UDC PEG SCH ×2 (09:39→17:26)
[2019-08-06] MEDS: SIMVASTATIN 10 MG TABLET PEG SCH (09:39)
[2019-08-06] MEDS: APIXABAN 5 MG TABLET PEG SCH ×2 (09:39→17:27)
[2019-08-06] MEDS: CEFTRIAXONE 1 GM/D5W RTU 1 GM/50 ML RTUPB IV SCH (09:40)
[2019-08-06] MEDS: ATROPINE SULFATE 1% OPH SOLN 5 ML BOTTLE SL SCH ×3 (09:40→17:26)
[2019-08-06] MEDS: FAMOTIDINE INJ/PF 20 MG/2 ML SDV IV SCH ×2 (09:40→22:25)
[2019-08-06] MEDS: NORMAL SALINE 1000 ML 1,000 ML IV PRN (13:04)
--- NOTE | 2019-08-06 14:14 | PDOC PROGRESS REPORT ---
Subjective Progress Note for:: 08/06/19 Reason For Visit: STATUS POST CVA,PROBABLE UTI,PNEUMONIA,STATUS POST 08/06/2019 Patient was admitted to the hospital on 08/04/2019 for UTI, possible pneumonia, altered mental status, elevated BNP, hypertension, status post CVA, sacral decubitus, status post hip fracture Physical Exam Vital Signs: Temp Pulse Resp BP Pulse Ox 99.0 F 84 19 138/63 H 95 08/06/19 11:03 08/06/19 11:03 08/06/19 11:03 08/06/19 11:03 08/06/19 11:03 Intake & Output 08/05/19 08/06/19 08/07/19 06:59 06:59 06:59 Intake Total 1300 1455 1050 Balance 1300 1455 1050 Weight 47.9 kg 50.1 kg General appearance: PRESENT: no acute distress Respiratory exam: PRESENT: clear to auscultation landon. ABSENT: rales, rhonchi, wheezes Cardiovascular exam: PRESENT: RRR. ABSENT: diastolic murmur, rubs, systolic murmur Neurological exam: PRESENT: alert, awake, aphasic - Expressive only Psychiatric exam: PRESENT: appropriate affect, normal mood. ABSENT: homicidal ideation, suicidal ideation Results Laboratory Results: 08/05/19 05:13 08/05/19 05:13 08/04/19 12:32 Catheterized Urine Urine Culture - Final Pseudomonas Aeruginosa 08/04/19 08/04/19 08/04/19 12:11 12:11 18:19 CK-MB (CK-2) 1.76 2.10 Troponin I 0.045 Cancelled 0.041 NT-Pro-B Natriuret Pep 1950 H 08/05/19 00:46 CK-MB (CK-2) 2.66 Troponin I 0.041 NT-Pro-B Natriuret Pep Impressions: Head CT 08/04/19 12:16 IMPRESSION: No acute intracranial hemorrhage, mass, or evidence of acute ter ritorial infarct. Moderate chronic small vessel ischemic change and intracranial atherosclerosis. EVIDENCE OF ACUTE STROKE: NO. Chest X-Ray 08/04/19 14:13 IMPRESSION: Right medial basilar airspace disease. Assessment and Plan - Diagnosis (1) Altered mental status Qualifiers: Altered mental status type: unspecified Qualified Code(s): R41.82 - Altered mental status, unspecified Is this a current diagnosis for this admission?: Yes (2) Urinary tract infection Qualifiers: Urinary tract infection type: site unspecified Hematuria presence: with hematuria Qualified Code(s): N39.0 - Urinary tract infection, site not specified; R31.9 - Hematuria, unspecified Is this a current diagnosis for this admission?: Yes (3) Elevated brain natriuretic peptide (BNP) level Is this a current diagnosis for this admission?: Yes (4) HTN (hypertension) Qualifiers: Is this a current diagnosis for this admission?: Yes (5) History of stroke Is this a current diagnosis for this admission?: Yes (6) Pneumonia Is this a current diagnosis for this admission?: Yes (7) Sacral decubitus ulcer Is this a current diagnosis for this admission?: Yes (8) Status post fracture of hip Is this a current diagnosis for this admission?: Yes - Plan Summary Summary: Patient will be admitted to hospital for IV fluids IV antibiotics urine and blood cultures. She appears to have some ischemic changes on her EKG however I have spoken to the daughter and we are not going to treat her troponins or do any further diagnostic cardiac studies Her daughter would like her to be full code until further notice 08/05/2019 Temperature 97.4 pulse 75 blood pressure 145/65 O2 sat 100% on 1 L CBC is stable, white count is actually down from 12.7-10.3, BNP is 1950, cultures are pending today. Patient was on vancomycin and have added IV Rocephin. I have examined her sacral decubitus today with nursing. It does not need surgical attention. Nursing is going to talk to the daughter and find about her feeding through her G-tube Patient appears to be stable. Patient does follow commands best as she possibly can status post fixed deficit CVA 08/06/2019 Vital signs reveal a temperature 7.5 pulse 81 blood pressure 120/56 White count stable 10.3 hemoglobin 9.2 BNP is elevated at 1950 Has positive urine culture and out Pseudomonas, peers to be sensitive to most antibiotics Patient currently on vancomycin and Rocephin. will stop the vancomycin Patient will be getting her tube feedings now through her G-tube Is my opinion that the patient will have a difficult time going back home being cared for by the daughter, have her family may request this as opposed to jail. I doubt she will see much improvement with rehab. Fact when she went to rehab last month following her hip fracture she actually worsened and was worse when she came home Physical therapy evaluation is pending labs appear stable Will await discharge planning, physical therapy, discussion with family concerning discharge. Patient is probably close to her baseline Patient only has an expressive aphasia she has no trouble with the receptive capability - Time Time Spent with patient: 25-34 minutes
--- NOTE | 2019-08-06 17:10 | Progress Note ---
Provider Note Provider Note: Altered mental status is on the basis of UTI. Patient has expressive aphasia secondary to old CVA
[2019-08-07] MEDS: ACETAMINOPHEN SOLN 325 MG/10.15 ML UDCUP PEG PRN (06:46)
[2019-08-07] MEDS: NORMAL SALINE 1000 ML 1,000 ML IV PRN (07:30)
[2019-08-07] MEDS: APIXABAN 5 MG TABLET PEG SCH ×2 (10:19→18:37)
[2019-08-07] MEDS: DOCUSATE SODIUM 100 MG/10 ML UDC PEG SCH ×2 (10:19→18:37)
[2019-08-07] MEDS: LISINOPRIL 10 MG TABLET PEG SCH (10:19)
[2019-08-07] MEDS: METOPROLOL TARTRATE 50 MG TABLET PEG SCH ×2 (10:19→21:49)
[2019-08-07] MEDS: LORAZEPAM INJ 2 MG/1 ML VIAL IV PRN ×2 (10:19→16:56)
[2019-08-07] MEDS: FAMOTIDINE INJ/PF 20 MG/2 ML SDV IV SCH ×2 (10:19→21:49)
[2019-08-07] MEDS: SIMVASTATIN 10 MG TABLET PEG SCH (10:20)
[2019-08-07] MEDS: CIPROFLOXACIN 200 MG/D5W RTU 200 MG/100 ML RTUPB IV SCH ×2 (10:27→21:50)
[2019-08-07] MEDS: ATROPINE SULFATE 1% OPH SOLN 5 ML BOTTLE SL SCH ×3 (10:27→18:38)
[2019-08-07] MEDS: SERTRALINE HCL 50 MG TABLET PEG SCH (10:28)
--- NOTE | 2019-08-07 11:51 | PDOC PROGRESS REPORT ---
Subjective Progress Note for:: 08/07/19 Subjective:: Patient able to complain of some pain today. Uncertain as to what the pain is as patient is not able to specify given her expressive aphasia. Denies shortness of breath. Reason For Visit: STATUS POST CVA,PROBABLE UTI,PNEUMONIA,STATUS POST Physical Exam Vital Signs: Temp Pulse Resp BP Pulse Ox 98.8 F 88 20 148/71 H 95 08/07/19 08:05 08/07/19 08:05 08/07/19 08:05 08/07/19 08:05 08/07/19 08:05 Intake & Output 08/06/19 08/07/19 08/08/19 06:59 06:59 06:59 Intake Total 1452049 100 Balance 1452049 100 Weight 50.1 kg 53 kg General appearance: PRESENT: no acute distress, cooperative Neck exam: ABSENT: JVD Respiratory exam: PRESENT: clear to auscultation landon, unlabored. ABSENT: tachypnea, wheezes Cardiovascular exam: PRESENT: RRR, +S1, +S2. ABSENT: tachycardia GI/Abdominal exam: PRESENT: soft. ABSENT: rebound, rigid, tenderness Neurological exam: PRESENT: alert, awake, oriented to person, motor sensory deficit - Right-sided hemiplegia, aphasic - Expressive aphasia but no receptive aphasia. Able to follow commands. Psychiatric exam: ABSENT: agitated, anxious Results Laboratory Results: 08/05/19 05:13 08/05/19 05:13 08/04/19 12:32 Catheterized Urine Urine Culture - Final Pseudomonas Aeruginosa 08/04/19 08/04/19 08/04/19 12:11 12:11 18:19 CK-MB (CK-2) 1.76 2.10 Troponin I 0.045 Cancelled 0.041 NT-Pro-B Natriuret Pep 1950 H 08/05/19 00:46 CK-MB (CK-2) 2.66 Troponin I 0.041 NT-Pro-B Natriuret Pep Impressions: Head CT 08/04/19 12:16 IMPRESSION: No acute intracranial hemorrhage, mass, or evidence of acute territorial infarct. Moderate chronic small vessel ischemic change and intracranial atherosclerosis. EVIDENCE OF ACUTE STROKE: NO. Chest X-Ray 08/04/19 14:13 IMPRESSION: Right medial basilar airspace disease. Assessment and Plan - Diagnosis (1) Metabolic encephalopathy Is this a current diagnosis for this admission?: Yes Plan: I suspect the patient is closer to baseline mental status. Has cognitive impairments as well as expressive aphasia which according to documentation is likely from a prior stroke. She does seem however to be able to follow commands and does not seem to be responding to internal stimulus during our encounter. I will continue treatment for urinary tract infection as this may have contributed. (2) Pseudomonas urinary tract infection Is this a current diagnosis for this admission?: Yes Plan: Urine culture growing Pseudomonas. Will change antibiotics to ciprofloxacin. (3) History of pulmonary embolism Is this a current diagnosis for this admission?: Yes Plan: H&P reviewed which indicates patient had a PE for which she is on Eliquis. Will continue Eliquis. (4) Status post fracture of hip Is this a current diagnosis for this admission?: Yes Plan: Informed by family the patient takes oxycodone at home. I will resume oxycodone as needed to help with her hip pain. (5) History of stroke Is this a current diagnosis for this admission?: Yes Plan: Right-sided hemiplegia with expressive aphasia but no receptive aphasia. Able to follow commands adequately. Patient will continue physical therapy and Occupational Therapy at the time of discharge. Seen by PT yesterday. Continue simvastatin. - Time Time Spent with patient: 15-24 minutes
[2019-08-07] MEDS: OXYCODONE HCL IR 5 MG TABLET PO PRN (18:37)
[2019-08-07] MEDS ORDERED: PHARMACY COMMUNICATION ORDER MC SCH (22:00)
[2019-08-07 22:36] LABS: VANCOMYCIN,TROUGH < 5.0 ug/mL (5.0-20.0)
[2019-08-08] MEDS: NORMAL SALINE 1000 ML 1,000 ML IV PRN (01:38)
[2019-08-08] MEDS: LORAZEPAM INJ 2 MG/1 ML VIAL IV PRN (03:50)
[2019-08-08] MEDS: FAMOTIDINE INJ/PF 20 MG/2 ML SDV IV SCH ×2 (11:21→21:38)
[2019-08-08] MEDS: DOCUSATE SODIUM 100 MG/10 ML UDC PEG SCH ×2 (11:21→17:31)
[2019-08-08] MEDS: LISINOPRIL 10 MG TABLET PEG SCH (11:21)
[2019-08-08] MEDS: METOPROLOL TARTRATE 50 MG TABLET PEG SCH ×2 (11:21→21:37)
[2019-08-08] MEDS: SIMVASTATIN 10 MG TABLET PEG SCH (11:21)
[2019-08-08] MEDS: SERTRALINE HCL 50 MG TABLET PEG SCH (11:21)
[2019-08-08] MEDS: APIXABAN 5 MG TABLET PEG SCH ×2 (11:21→17:31)
[2019-08-08] MEDS: OXYCODONE HCL IR 5 MG TABLET PO PRN (11:22)
[2019-08-08] MEDS: CIPROFLOXACIN 200 MG/D5W RTU 200 MG/100 ML RTUPB IV SCH ×2 (11:31→21:37)
[2019-08-08] MEDS: ATROPINE SULFATE 1% OPH SOLN 5 ML BOTTLE SL SCH ×3 (11:37→17:32)
[2019-08-08] MEDS: FLUTICASONE NASAL SPRAY 50 MCG/SPRY 120 SPRAY/16 GM NASL SCH ×2 (13:00→21:37)
--- NOTE | 2019-08-08 14:49 | PDOC PROGRESS REPORT ---
Subjective Progress Note for:: 08/08/19 Subjective:: Patient denies any shortness of breath or pain today. Reason For Visit: STATUS POST CVA,PROBABLE UTI,PNEUMONIA,STATUS POST Physical Exam Vital Signs: Temp Pulse Resp BP Pulse Ox 98.8 F 93 20 163/68 H 97 08/08/19 11:19 08/08/19 11:19 08/08/19 11:19 08/08/19 11:19 08/08/19 11:19 Intake & Output 08/07/19 08/08/19 08/09/19 06:59 06:59 06:59 Intake Total 2049 1200 Balance 2049 1200 Weight 53 kg 53 kg General appearance: PRESENT: no acute distress, cooperative Respiratory exam: PRESENT: tachypnea, unlabored. ABSENT: wheezes Neurological exam: PRESENT: alert, awake Results Laboratory Results: 08/05/19 05:13 08/07/19 21:36 08/07/19 21:36 Creatinine 0.38 L Est GFR ( Amer) > 60 08/04/19 12:11 Blood Blood Culture (PCR) - Final 08/04/19 08/04/19 08/04/19 12:11 12:11 18:19 CK-MB (CK-2) 1.76 2.10 Troponin I 0.045 Cancelled 0.041 NT-Pro-B Natriuret Pep 1950 H 08/05/19 00:46 CK-MB (CK-2) 2.66 Troponin I 0.041 NT-Pro-B Natriuret Pep Impressions: Head CT 08/04/19 12:16 IMPRESSION: No acute intracranial hemorrhage, mass, or evidence of acute territorial infarct. Moderate chronic small vessel ischemic change and intracranial atherosclerosis. EVIDENCE OF ACUTE STROKE: NO. Chest X-Ray 08/04/19 14:13 IMPRESSION: Right medial basilar airspace disease. Assessment and Plan - Diagnosis (1) Metabolic encephalopathy Is this a current diagnosis for this admission?: Yes Plan: I suspect the patient is closer to baseline mental status. Has cognitive i mpairments as well as expressive aphasia which according to documentation is likely from a prior stroke. She does seem however to be able to follow commands and does not seem to be responding to internal stimulus during our encounter. I will continue treatment for urinary tract infection as this may have contributed. (2) Pseudomonas urinary tract infection Is this a current diagnosis for this admission?: Yes Plan: Urine culture growing Pseudomonas. Continue ciprofloxacin D2. (3) History of pulmonary embolism Is this a current diagnosis for this admission?: Yes Plan: Continue Eliquis. (4) Status post fracture of hip Is this a current diagnosis for this admission?: Yes Plan: Informed by family the patient takes oxycodone at home. I will resume oxycodone as needed to help with her hip pain. (5) History of stroke Is this a current diagnosis for this admission?: Yes Plan: Right-sided hemiplegia with expressive aphasia but no receptive aphasia. Able to follow commands adequately. Discussed with discharge planning regarding patient's return and informed the patient's daughter would like return to SNF. Patient may benefit from some rehabilitation but overall there is limited room for improvement given her physical condition. Otherwise will need 24-hour supervision at home. We will go ahead and plan for disposition to SNF. COVID19 screen. - Time Time Spent with patient: Less than 15 minutes
[2019-08-09 05:43] LABS: HEMATOCRIT 29.8 % (36.0-47.0); HEMOGLOBIN 9.6 g/dL (12.0-15.5); MEAN CORPUSCULAR HEMOGLOBIN 25.1 pg (27.0-33.4); MEAN CORPUSCULAR HGB CONC 32.1 g/dL (32.0-36.0); MEAN CORPUSCULAR VOLUME 78 fl (80-97); PLATELET COUNT 399 10^3/uL (150-450); RED BLOOD COUNT 3.81 10^6/uL (3.72-5.28); RED CELL DISTRIBUTION WIDTH 17.6 % (11.5-14.0); WHITE BLOOD COUNT 5.4 10^3/uL (4.0-10.5)
[2019-08-09 06:13] LABS: ALBUMIN 2.8 g/dL (3.5-5.0); ALKALINE PHOSPHATASE 103 U/L (38-126); ANION GAP 7 (5-19); ASPARTATE AMINO TRANSFERASE 30 U/L (14-36); BILIRUBIN,TOTAL 0.2 mg/dL (0.2-1.3); BLOOD UREA NITROGEN 11 mg/dL (7-20); CALCIUM 8.8 mg/dL (8.4-10.2); CARBON DIOXIDE 29 mmol/L (22-30); CHLORIDE 102 mmol/L (98-107); GLUCOSE 124 mg/dL (75-110); PHOSPHORUS 3.8 mg/dL (2.5-4.5); POTASSIUM 4.3 mmol/L (3.6-5.0); TOTAL PROTEIN 6.5 g/dL (6.3-8.2)
[2019-08-09] MEDS: FAMOTIDINE INJ/PF 20 MG/2 ML SDV IV SCH ×2 (09:00→22:05)
[2019-08-09] MEDS: CIPROFLOXACIN 200 MG/D5W RTU 200 MG/100 ML RTUPB IV SCH ×2 (09:00→22:04)
[2019-08-09] MEDS: FLUTICASONE NASAL SPRAY 50 MCG/SPRY 120 SPRAY/16 GM NASL SCH ×2 (09:00→22:05)
[2019-08-09] MEDS: LISINOPRIL 10 MG TABLET PEG SCH (09:00)
[2019-08-09] MEDS: APIXABAN 5 MG TABLET PEG SCH ×2 (09:00→17:28)
[2019-08-09] MEDS: METOPROLOL TARTRATE 50 MG TABLET PEG SCH ×2 (09:01→22:05)
[2019-08-09] MEDS: SERTRALINE HCL 50 MG TABLET PEG SCH (09:01)
[2019-08-09] MEDS: OXYCODONE HCL IR 5 MG TABLET PO PRN ×2 (09:01→17:27)
[2019-08-09] MEDS: SIMVASTATIN 10 MG TABLET PEG SCH (09:01)
[2019-08-09] MEDS: ATROPINE SULFATE 1% OPH SOLN 5 ML BOTTLE SL SCH ×3 (09:02→17:28)
[2019-08-09] MEDS: DOCUSATE SODIUM 100 MG/10 ML UDC PEG SCH ×2 (09:02→17:23)
--- NOTE | 2019-08-09 17:36 | PDOC PROGRESS REPORT ---
Subjective Progress Note for:: 08/09/19 Subjective:: Patient has no complaints today. Aphasic and cannot offer subjective. Reason For Visit: STATUS POST CVA,PROBABLE UTI,PNEUMONIA,STATUS POST Physical Exam Vital Signs: Temp Pulse Resp BP Pulse Ox 97.8 F 88 20 132/61 H 97 08/09/19 15:17 08/09/19 15:17 08/09/19 15:17 08/09/19 15:17 08/09/19 15:17 Intake & Output 08/08/19 08/09/19 08/10/19 06:59 06:59 06:59 Intake Total 1200 1200 100 Balance 1200 1200 100 Weight 53 kg 53 kg General appearance: PRESENT: no acute distress, cooperative Neck exam: ABSENT: JVD Respiratory exam: PRESENT: unlabored Cardiovascular exam: ABSENT: tachycardia GI/Abdominal exam: PRESENT: soft. ABSENT: tenderness Neurological exam: PRESENT: alert, awake, aphasic Results Laboratory Results: 08/09/19 04:23 08/09/19 04:23 08/09/19 08/09/19 04:23 04:23 WBC 5.4 RBC 3.81 Hgb 9.6 L Hct 29.8 L MCV 78 L MCH 25.1 L MCHC 32.1 RDW 17.6 H Plt Count 399 Sodium 137.7 Potassium 4.3 Chloride 102 Carbon Dioxide 29 Anion Gap 7 BUN 11 Creatinine 0.43 L Est GFR ( Amer) > 60 Glucose 124 H Calcium 8.8 Phosphorus 3.8 Magnesium 2.0 Total Bilirubin 0.2 AST 30 Alkaline Phosphatase 103 Total Protein 6.5 Albumin 2.8 L 08/04/19 14:57 Blood Blood Culture - Final NO GROWTH IN 5 DAYS 08/04/19 12:11 Blood Blood Culture (PCR) - Final 08/04/19 12:11 Blood Blood Culture - Final Corynebacterium Species 08/04/19 08/04/19 08/04/19 12:11 12:11 18:19 CK-MB (CK-2) 1.76 2.10 Troponin I 0.045 Cancelled 0.041 NT-Pro-B Natriuret Pep 1950 H 08/05/19 00:46 CK-MB (CK-2) 2.66 Troponin I 0.041 NT-Pro-B Natriuret Pep Impressions: Head CT 08/04/19 12:16 IMPRESSION: No acute intracranial hemorrhage, mass, or evidence of acute territorial infarct. Moderate chronic small vessel ischemic change and intracranial atherosclerosis. EVIDENCE OF ACUTE STROKE: NO. Chest X-Ray 08/04/19 14:13 IMPRESSION: Right medial basilar airspace disease. Assessment and Plan - Diagnosis (1) Pseudomonas urinary tract infection Is this a current diagnosis for this admission?: Yes Plan: Urine culture growing Pseudomonas. Continue ciprofloxacin D3. (2) Metabolic encephalopathy Is this a current diagnosis for this admission?: Yes Plan: I suspect the patient is closer to baseline mental status. Has cognitive impairments as well as expressive aphasia which according to documentation is likely from a prior stroke. She does seem however to be able to follow commands and does not seem to be responding to internal stimulus during our encounter. I will continue treatment for urinary tract infection as this may have contributed. (3) History of pulmonary embolism Is this a current diagnosis for this admission?: Yes Plan: Continue Eliquis. (4) Status post fracture of hip Is this a current diagnosis for this admission?: Yes (5) History of stroke Is this a current diagnosis for this admission?: Yes - Plan Summary Summary: Discussed with patient's daughter today as well as social work and plan is for patient to be discharged to [facility] tomorrow. [facility] does not have any availability for placement until Tuesday. - Time Time Spent with patient: Less than 15 minutes
--- NOTE | 2019-08-09 17:40 | ADVANCED CARE ---
- Diagnosis (1) Pseudomonas urinary tract infection Diagnosis Current: Yes (4) Status post fracture of hip Diagnosis Current: Yes (5) History of stroke Diagnosis Current: Yes Attendance: Patient's daughter and myself Resuscitation Status: Full Code Discussion: We discussed patient's overall medical condition and medical state comprehensively. We discussed patient's immobility due to her stroke and recent hip fracture as well as her aphasia and quality of life. We also discussed her poor physical conditioning and limited ability for improvement in terms of her mobility. We discussed the issue the patient has had some recurrent hospitalizations in the past 2 years. Discussed placement for patient as well as long-term goals. Also discussed possibility that patient likely has underlying vascular dementia. However neuropsychiatric testing will be limited given patient's aphasia. Also raised the issue palliative care and hospice care. Patient's daughter will like to hold off on hospice just yet and to have palliative care follow with patient once discharged from hospital. Time Spent: 20 minutes
[2019-08-10] MEDS: ACETAMINOPHEN SOLN 325 MG/10.15 ML UDCUP PEG PRN (02:36)
[2019-08-10] MEDS ORDERED: ASPIRIN 81 MG TABLET, CHEWABLE PO SCH (10:00)
[2019-08-10] MEDS: METOPROLOL TARTRATE 50 MG TABLET PEG SCH (11:37)
[2019-08-10] MEDS: SIMVASTATIN 10 MG TABLET PEG SCH (11:38)
[2019-08-10] MEDS: LISINOPRIL 10 MG TABLET PEG SCH (11:38)
[2019-08-10] MEDS: APIXABAN 5 MG TABLET PEG SCH (11:39)
[2019-08-10] MEDS: FLUTICASONE NASAL SPRAY 50 MCG/SPRY 120 SPRAY/16 GM NASL SCH (11:39)
[2019-08-10] MEDS: SERTRALINE HCL 50 MG TABLET PEG SCH (11:39)
[2019-08-10] MEDS: FAMOTIDINE INJ/PF 20 MG/2 ML SDV IV SCH (11:39)
[2019-08-10] MEDS: DOCUSATE SODIUM 100 MG/10 ML UDC PEG SCH (11:40)
[2019-08-10] MEDS: ATROPINE SULFATE 1% OPH SOLN 5 ML BOTTLE SL SCH ×2 (11:41→15:08)
[2019-08-10] MEDS: CIPROFLOXACIN 200 MG/D5W RTU 200 MG/100 ML RTUPB IV SCH (11:42)
[2019-08-10] MEDS: OXYCODONE HCL IR 5 MG TABLET PO PRN (11:44)
[2019-08-10 12:44] VITALS: BP 134/72
--- NOTE | 2019-08-10 12:51 | PDOC TRANSFER SUMMARY ---
Impression - Admit/DC Date/PCP Admission Date/Primary Care Provider: 08/04/19 14:48 SHARI BENSON MD Discharge Date: 08/10/19 - Discharge Diagnosis (1) Pseudomonas urinary tract infection Is this a current diagnosis for this admission?: Yes (2) Metabolic encephalopathy Is this a current diagnosis for this admission?: Yes (3) History of pulmonary embolism Is this a current diagnosis for this admission?: Yes (4) Status post fracture of hip Is this a current diagnosis for this admission?: Yes (5) History of stroke Is this a current diagnosis for this admission?: Yes - Additional Information Resuscitation Status: Full Code Referrals: SHARI BENSON MD [Primary Care Provider] - 08/09/19 11:00 am Prescriptions: Ciprofloxacin HCl [Cipro] 500 mg PO Q12 3 Days tablet Atorvastatin Calcium [Lipitor 40 mg Tablet] 40 mg PO QHS #30 tablet Home Medications: Lisinopril [Prinivil 20 mg Tablet] 20 mg PO DAILY 09/23/11 Sertraline HCl [Zoloft 50 mg Tablet] 50 mg PO DAILY 09/23/11 Apixaban [Eliquis 5 mg Tablet] 5 mg PO BID 08/04/19 Atropine Sulfate [Atropine 1% Oph Soln 5 ml] 2 drop SL TID 08/04/19 Aspirin [Aspirin 81 mg Chewable Tablet] 81 mg PO DAILY tab.chew 08/10/19 Atorvastatin Calcium [Lipitor 40 mg Tablet] 40 mg PO QHS #30 tablet 08/10/19 Ciprofloxacin HCl [Cipro] 500 mg PO Q12 3 Days tablet 08/10/19 Docusate Sodium [Colace Udc 100 mg/10 ml Oral Soln] 100 mg PEG BID udc 08/10/19 Fluticasone Propionate [Flonase Nasal [place] 50 Mcg/[place] 16 gm] 2 spray NASL Q12 spray.pump 08/10/19 Metoprolol Tartrate [Lopressor 50 mg Tablet] 50 mg PEG Q12 tablet 08/10/19 History of Present Illiness History of Present Illness: According to Admitting provider: ARIANA MCCARTHY is a 73 year old female comes to the emergency room by EMS for altered mental status, hypoxia. Patient is completely a phasic from a CVA she had many years ago.. Story is gleaned through the chart and by speaking to her daughter, Erica. Evidently patient was just released from rehab about 1 week ago after fracturing her hip 1 month ago.. Patient had surgery for her hip fracture in [place]. Patient was treated for a UTI while in rehab.. Right after patient fractured her hip she also developed pulmonary embolisms and she is currently on Eliquis. In the last several days patient she has continued to deteriorate as far as her level of consciousness as well as some sort of visual hallucination.. Her daughter thinks she may in fact have another UTI and/or be septic. Daughter wants her to be a full code for now.. Patient will be admitted to the hospital for IV fluids and IV antibiotics as well as serial labs. Hospital Course Hospital Course: Patient was admitted to the hospital for treatment of urinary tract infection. Urine culture grew Pseudomonas. She was started on IV ciprofloxacin which she has been taking and will continue for 3 more days of oral ciprofloxacin to complete 6 days of therapy. Head CT was unremarkable for any acute changes. Chest x-ray was performed which showed mild right medial airspace disease which when compared to her prior chest x-ray in May seems to have also been present at that time. However even if this is a pneumonia and should be adequately covered with ciprofloxacin. Patient is continued on her tube feedings via her PEG tube. 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 I have also started her on aspirin 81 mg daily as well as discontinued her simvastatin and change to atorvastatin given her history of stroke. Patient has been stable for the past several days and is ready for discharge. Physical Exam Vital Signs: Temp Pulse Resp BP Pulse Ox 98.0 F 82 18 140/75 H 97 08/10/19 00:00 08/10/19 00:00 08/10/19 00:00 08/10/19 00:00 08/10/19 00:00 Intake & Output 08/09/19 08/10/19 08/11/19 06:59 06:59 06:59 Intake Total 1200 200 Balance 1200 200 Weight 53 kg 47.9 kg General appearance: PRESENT: no acute distress, cooperative Neck exam: ABSENT: JVD Respiratory exam: PRESENT: rhonchi - mild upper respiratory. improves with cough, symmetrical, unlabored. ABSENT: crackles, tachypnea, wheezes Cardiovascular exam: PRESENT: +S1, +S2. ABSENT: tachycardia GI/Abdominal exam: PRESENT: soft. ABSENT: tenderness Neurological exam: PRESENT: alert, awake, motor sensory deficit - Right hemiplegia. LUE and LLE weakness., aphasic - expressive aphasia but rejogger seems to be intact as she can follow a lot of commands.. ABSENT: CN II-XII grossly intact - Slurred, facial deviation, facial muscle weakness. Psychiatric exam: ABSENT: agitated, anxious Results Laboratory Results: WBC 5.4 10^3/uL (4.0-10.5) 08/09/19 04:23 RBC 3.81 10^6/uL (3.72-5.28) 08/09/19 04:23 Hgb 9.6 g/dL (12.0-15.5) L 08/09/19 04:23 Hct 29.8 % (36.0-47.0) L 08/09/19 04:23 MCV 78 fl (80-97) L 08/09/19 04:23 MCH 25.1 pg (27.0-33.4) L 08/09/19 04:23 MCHC 32.1 g/dL (32.0-36.0) 08/09/19 04:23 RDW 17.6 % (11.5-14.0) H 08/09/19 04:23 Plt Count 399 10^3/uL (150-450) 08/09/19 04:23 Lymph % (Auto) 13.3 % (13-45) 08/05/19 05:13 Kay % (Auto) 5.6 % (3-13) 08/05/19 05:13 Eos % (Auto) 0.2 % (0-6) 08/05/19 05:13 Baso % (Auto) 0.7 % (0-2) 08/05/19 05:13 Absolute Neuts (auto) 8.3 10^3/uL (1.7-8.2) H 08/05/19 05:13 Absolute Lymphs (auto) 1.4 10^3/uL (0.5-4.7) 08/05/19 05:13 Absolute Monos (auto) 0.6 10^3/uL (0.1-1.4) 08/05/19 05:13 Absolute Eos (auto) 0.0 10^3/uL (0.0-0.6) 08/05/19 05:13 Absolute Basos (auto) 0.1 10^3/uL (0.0-0.2) 08/05/19 05:13 Seg Neutrophils % 80.2 % (42-78) H 08/05/19 05:13 PT 22.1 SEC (11.4-15.4) H 08/04/19 12:11 INR 1.90 08/04/19 12:11 APTT 43.9 SEC (23.5-35.8) H 08/04/19 12:11 Sodium 137.7 mmol/L (137-145) 08/09/19 04:23 Potassium 4.3 mmol/L (3.6-5.0) 08/09/19 04:23 Chloride 102 mmol/L (98-107) 08/09/19 04:23 Carbon Dioxide 29 mmol/L (22-30) 08/09/19 04:23 Anion Gap 7 (5-19) 08/09/19 04:23 BUN 11 mg/dL (7-20) 08/09/19 04:23 Creatinine 0.43 mg/dL (0.52-1.25) L 08/09/19 04:23 Est GFR ( Amer) > 60 (>60) 08/09/19 04:23 Est GFR (MDRD) Non-Af > 60 (>60) 08/09/19 04:23 Glucose 124 mg/dL (75-110) H 08/09/19 04:23 Lactic Acid 1.0 mmol/L (0.7-2.1) 08/04/19 12:11 Calcium 8.8 mg/dL (8.4-10.2) 08/09/19 04:23 Phosphorus 3.8 mg/dL (2.5-4.5) 08/09/19 04:23 Magnesium 2.0 mg/dL (1.6-2.3) 08/09/19 04:23 Total Bilirubin 0.2 mg/dL (0.2-1.3) 08/09/19 04:23 Direct Bilirubin 0.0 mg/dL (0.0-0.4) 08/09/19 04:23 Neonat Total Bilirubin Not Reportable 08/09/19 04:23 Neonat Direct Bilirubin Not Reportable 08/09/19 04:23 Neonat Indirect Bili Not Reportable 08/09/19 04:23 AST 30 U/L (14-36) 08/09/19 04:23 ALT 24 U/L (<35) 08/09/19 04:23 Alkaline Phosphatase 103 U/L (38-126) 08/09/19 04:23 CK-MB (CK-2) 2.66 ng/mL (<4.55) 08/05/19 00:46 Troponin I 0.041 ng/mL 08/05/19 00:46 NT-Pro-B Natriuret Pep 1950 pg/mL (<125) H 08/04/19 12:11 Total Protein 6.5 g/dL (6.3-8.2) 08/09/19 04:23 Albumin 2.8 g/dL (3.5-5.0) L 08/09/19 04:23 Urine Color YELLOW 08/04/19 12:32 Urine Appearance CLOUDY 08/04/19 12:32 Urine pH 6.0 (5.0-9.0) 08/04/19 12:32 Ur Specific [place] 1.020 08/04/19 12:32 Urine Protein 30 mg/dL (NEGATIVE) H 08/04/19 12:32 Urine Glucose (UA) NEGATIVE mg/dL (NEGATIVE) 08/04/19 12:32 Urine Ketones NEGATIVE mg/dL (NEGATIVE) 08/04/19 12:32 Urine Blood NEGATIVE (NEGATIVE) 08/04/19 12:32 Urine Nitrite NEGATIVE (NEGATIVE) 08/04/19 12:32 Urine Bilirubin NEGATIVE (NEGATIVE) 08/04/19 12:32 Urine Urobilinogen NEGATIVE mg/dL (<2.0) 08/04/19 12:32 Ur Leukocyte Esterase LARGE (NEGATIVE) H 08/04/19 12:32 Urine WBC (Auto) 129 /HPF 08/04/19 12:32 Urine RBC (Auto) 23 /HPF 08/04/19 12:32 Urine Bacteria (Auto) TRACE /HPF 08/04/19 12:32 Urine WBC Clumps MANY /HPF 08/04/19 12:32 Squamous Epi Cells Auto 1 /HPF 08/04/19 12:32 Urine Mucus (Auto) MOD /LPF 08/04/19 12:32 Urine Ascorbic Acid 40 (NEGATIVE) H 08/04/19 12:32 Time Trough Drawn 213508/07/19 21:36 Vancomycin Trough < 5.0 ug/mL (5.0-20.0) L 08/07/19 21:36 SARS-CoV-2 (PCR) NEGATIVE (NEGATIVE) 08/08/19 18:30 08/04/19 08/04/19 08/04/19 12:11 12:11 18:19 CK-MB (CK-2) 1.76 2.10 Troponin I 0.045 Cancelled 0.041 NT-Pro-B Natriuret Pep 1950 H 08/05/19 00:46 CK-MB (CK-2) 2.66 Troponin I 0.041 NT-Pro-B Natriuret Pep Impressions: Head CT 08/04/19 12:16 IMPRESSION: No acute intracranial hemorrhage, mass, or evidence of acute territorial infarct. Moderate chronic small vessel ischemic change and intracranial atherosclerosis. EVIDENCE OF ACUTE STROKE: NO. Chest X-Ray 08/04/19 14:13 IMPRESSION: Right medial basilar airspace disease. Plan Time Spent: Less than 30 Minutes Stroke Is this a Stroke Patient?: Yes Stroke Pt being discharged on Anti-thrombolytic therapy?: Yes Stroke Pt being discharged on Anti-coagulation therapy?: Yes Stroke Pt being discharged on Statins?: Yes Acute Heart Failure - Is this a Heart Failure Patient?: No
== END 2019-08-10 15:12 | DRG 689 ==
LOC: ER 11:53 → EH 14:48 → 4N 16:59
PROVIDERS: ADMIT Hospitalist; ATTEND Internal Medicine
DX: N39.0 Urinary tract infection, site not specified (principal); J18.9 Pneumonia, unspecified organism; G93.41 Metabolic encephalopathy; I69.351 Hemiplegia and hemiparesis following cerebral infarction affecting right dominant side; Z68.1 Body mass index [BMI] 19.9 or less, adult; B96.5 Pseudomonas (aeruginosa) (mallei) (pseudomallei) as the cause of diseases classified elsewhere; R41.82 Altered mental status, unspecified; R62.7 Adult failure to thrive; E78.5 Hyperlipidemia, unspecified; I10 Essential (primary) hypertension; L89.159 Pressure ulcer of sacral region, unspecified stage; K21.9 Gastro-esophageal reflux disease without esophagitis; I69.320 Aphasia following cerebral infarction; Z03.818 Encounter for observation for suspected exposure to other biological agents ruled out; Z79.01 Long term (current) use of anticoagulants; Z86.711 Personal history of pulmonary embolism
CPT/HCPCS: 36415; 51701; 70450; 71045; 80048; 80053; 80202; 81001; 82553; 82565; 83605; 83735; 83880; 84100; 84484; 85025; 85027; 85610; 85730; 87040; 87077; 87086; 87088; 87150; 87186; 87635; 93005; 93010; 96361; 96365; 99285; C9803; J0696; J0744; J2060; J3370; J3490; J7030; J7060; S0028